=== PATIENT | male | born 1945 | race Hispanic/Latino ===

== ENCOUNTER 2019-05-15 09:52 | Inpatient (IN) | payer MEDICARE ==
[2019-05-15] MEDS ORDERED: DEXTROSE 50% IN WATER (25GM) 50 ML SYRINGE IV PRN (10:09)
[2019-05-15] MEDS ORDERED: NAPROXEN 375 MG TAB PO PRN (10:25)
[2019-05-15] MEDS: INSULIN LISPRO 100 UNIT/ML SUB-Q SCH ×2 (11:15→17:15)
--- NOTE | 2019-05-15 11:26 | History and Physical Report ---
History of Present Illness Date: 05/15/19 Date of admission: 05/15/19 11:12 Chief Complaint: CVA History of present illness: 73-year-old male who developed left face arm and leg numbness. Was taken to the ER and found to be hypertensive. CT head showed no acute findings however MRI showed a medullary infarct. Patient underwent PT and OT for therapy at the acute hospital and was recommended for acute inpatient rehabilitation. On exam he notes that he has some constipation with a very small bowel movement today. He also notes that he is having left-sided numbness in his leg and buttock's for quite some time and on exam seems to be consistent with SI joint or possibly nerve root impingement. Patient denies any issues with seizures even though this is part of his medical record. Says he was briefly placed on antiepileptics however states that he is never had a seizure to his knowledge. Has been off of medications for over a year without any further issues. At baseline patient does state that he has some issues of balance and those are worsened currently. After the patient was medically stabilized they were transferred for further rehabilitation. All available medical records have been reviewed. Plan of care was discussed with patient. Past History Past Medical History: arthritis, CAD, diabetes, hypertension, hyperlipidemia, seizures (questionable) Past Surgical History: Other (cardiac, foot, knee, prostate, shoulder) Social history: , lives with family, full code. denies: smoking, alcohol abuse Family history: diabetes, hypertension Medications and Allergies Allergies Allergy/AdvReac Type Severity Reaction Status Date / Time No Known Allergies Allergy Verified 05/15/19 10:50 Active Meds: Active Medications Amlodipine Besylate (Amlodipine) 10 mg PO QDAY VALERIO Aspirin (Halfprin Ec) 81 mg PO QDAY VALERIO Atorvastatin Calcium (Lipitor) 40 mg PO QHS VALERIO Clopidogrel Bisulfate (Plavix) 75 mg PO QDAY VALERIO Dextrose (D50w (25gm) Syringe) 50 ml IV Q30MIN PRN; Protocol PRN Reason: Hypoglycemia Diclofenac Sodium (Diclofenac 1%) 1 applic TP TID PRN PRN Reason: Pain, Moderate (4-6) Ergocalciferol (Vitamin D2) 50,000 unit PO QWEEK VALERIO Fenofibrate (Tricor) 48 mg PO QDAY VALERIO Heparin Sodium (Porcine) (Heparin) 5,000 unit SUB-Q Q8HR VALERIO Hydralazine HCl (Apresoline) 25 mg PO Q8HR VALERIO Insulin Glargine (Lantus) 15 units SUB-Q QHS VALERIO Insulin Human Lispro (Humalog) 0 unit SUB-Q AC VALERIO; Protocol Lisinopril (Zestril) 40 mg PO QDAY VALERIO Metformin HCl (Glucophage) 1,000 mg PO BIDDIAB VALERIO Naproxen (Naproxen) 375 mg PO Q12H PRN PRN Reason: Pain, Mild (1-3) Review of Systems All systems: negative (ROS negative for 12 systems except as noted below with pertinent positives and negatives.) Constitutional: no weight loss, no fever, no chills Ears, nose, mouth and throat: no decreased hearing, no dysphagia Cardiovascular: no chest pain, no rapid/irregular heart beat Respiratory: no cough, no shortness of breath Gastrointestinal: constipation, no abdominal pain, no nausea, no vomiting Genitourinary Male: no dysuria, no flank pain Musculoskeletal: leg numbness/tingling, gait dysfunction Integumentary: no rash, no sores Neurological: weakness, parathesias Endocrine: high blood sugars Exam - Exam Narrative exam: MUSCULOSKELETAL SPECIALTY EXAM CONSTITUTIONAL: Well developed, well nourished, appropriately groomed, obese. RIGHT hand dominant. LYMPHATIC: No appreciable abnormalities palpable in neck RESPIRATORY: Clear to auscultation bilaterally, no increased work of breathing CARDIOVASCULAR: Regular Rate/ Rhythm, no swelling, edema or tenderness in BUE or BLE. Pulses palpable in all extremities. All extremities warm. GI: + bowel sounds, soft, NTTP, nondistended. INTEGUMENTARY: Normal, no lesion, rash, masses or bruising noted in extremities. Noted to have area delineated with marker on the right upper extremity of previous infiltration. No redness or current infiltration appreciated. MUSCULOSKELETAL: BUE and BLE normal without defect, crepitus, subluxation, effusion, arthritic changes or TTP. R 4+/5 L 4-/5 ROM normal Tone normal NEURO: CN II : Visual [place] full to confrontation CN II, III : PERRL CN III, IV, : EOMI CN V : Facial sensation intact CN VII : Symmetric facial expressions and eye closure CN VIII : Hearing intact to finger rustle CN IX, X : Palate/uvula elevate midline, phonation normal CN XI : Intact shoulder shrug and head rotation CN XII : Tongue protrudes midline Sensation intact in all extremities without extinction. Reflexes 1+ bilaterally at biceps, brachioradialis and patella. No clonus at ankles. Coordination intact in RUE, impaired in LUE. No tremor noted in 4 extremities. Naming and repetition intact. Follows 2 step commands. Aphasia not appreciated Dysarthria not appreciated Dysphagia not appreciated Neglect not appreciated POSTURE and GAIT: Sitting posture good. Balance appears reasonable. Gait deferred until seen with therapy. PSYCH: Alert, oriented x3, affect appears euthymic. Insight appears intact. Assessment and Plan Assessment and plan: Patient was assessed and evaluated for Acute Inpatient Rehab Unit. Due to the patients above-mentioned medical complexity, along with decreased functional mobility and self care, this patient continues to require and be appropriate for a comprehensive, multidisciplinary [id number] rehabilitation program. These needs cannot be met in an outpatient or other less intensive setting. The patient would continue to benefit from skilled therapy intervention for at least 3 hours per day, five days a week, with techniques specific to the needs of the patient to improve function, activities of daily living, and reintegration into the community. The patient continues to require: -- OT to improve ROM, self-care, and learn use of adaptive equipment -- PT to improve strength and balance, functional transfers, and ambulation with energy conservation techniques to improve functional mobility -- SEISMOGRAPH COMPUTER to address cognitive deficits and swallowing ability -- 24 hour RN to ensure and prevent skin breakdown, promote progressive independence while ensuring safety, ensure education regarding medications, and incorporation of the rehabilitation at the bedside -- 24 hour Client Support Manager to coordinate this interdisciplinary program, and to manage/prevent complications as a result of the patients medical comorbidities. -Plan of care by day 4 -Weekly team conferences With such a program, there is a reasonable certainty that the goals individualized for this patient can be achieved within the specified length of stay. CVA medullary with left hemiparesis: Continue secondary stroke prevention, discussed prognosis and recovery time period. Monitor for any further neurological deficits or changes, monitor for post stroke depression, monitor for shoulder hand syndrome. Hypertension: Monitor blood pressure on her regular basis and adjust medications as needed for optimal control of hypertension. Hold orders placed for medications. Diabetes, insulin dependent: Continue metformin and insulin regimen. Patient takes true acidity and Apidra at home. We'll substitute for glargine and sliding scale insulin while here. Previous hemoglobin A1c at outside hospital was 9.0. Hyperlipidemia: Continue statin. We'll need to follow-up with PCP for a goal LDL less than 70. CAD: Monitor for any signs of cardiac abnormalities. Seizure disorder: Patient does not think this was ever truly diagnosed and has not been on antiepileptics for years. Z73.6 ADL dysfunction: OT will work on improving ability to perform ADLs (including assistive devices) to increase independence and decrease caregiver burden and improve functional transfers and mobility training. R26.2 Difficulty walking: PT will work on gait training and proper use of assistive devices and advance as appropriate to use of stairs and outside ambulation on uneven surfaces. R26.81 Unsteadiness on feet: PT will work on improving static and dynamic sitting and standing balance as well as proper use of assistive devices to decrease risk of falls. R26.89 Abnormality of gait: PT will work to improve safety and efficiency of gait through neuromotor training and gait training along with instruction on proper use of assistive devices. M62.81 Muscle weakness: PT & OT will work on strengthening exercises to improve functional strength including mixture of closed and open kinetic chain exercises. R53.81 Debility: PT & OT will work on improving overall functional status to improve participation with ADLs, mobility and social involvement. R53.83 Fatigue: PT & OT will work on improving endurance through aerobic exercises and therapeutic activity while monitoring patients tolerance for activity and vital signs as needed. DVT ppx: Pain: Continue physical modalities in therapy and pain medications as needed to achieve functional pain control. Sleep: Monitor and address as needed. Bowel: Monitor and address as needed. Start Medications with hold orders to ensure regular bowel movements. Appetite: Monitor and address as needed. Discharge planning: Pending therapy progress and care plan meeting. Will continue discussion with therapy team, SW, patient and family. Restrictions/ Precautions: Falls WB status: FWB Functional Hx: ADLs: Independent Cognition: Independent Mobility: No AD Barriers to Discharge: Decreased mobility and ability to perform self care, balance deficits, weakness Estimated Length of Stay: 1421 days Discharge Destination: Home with family POST ADMISSION PHYSICIAN EVALUATION I have examined the patient and find that functional status, medical condition a nd appropriateness for IR[facility] admission are essentially unchanged from those described in the preadmission screening. Will monitor for worsening neurologic function, shoulder-hand syndrome, post stroke depression, dysphagia, DVT/PE, bowel and bladder complications and complications due to poorly controlled diabetes and hypertension and electrolyte abnormalities. Will attempt to avoid occurrence of these issues or treat them if they present themselves.
[2019-05-15] MEDS ORDERED: INSULIN NPH, HUMAN 100 UNIT/1 ML SUB-Q SCH (11:30)
[2019-05-15] MEDS: hydrALAZINE 25 MG TAB PO SCH ×2 (14:18→23:02)
[2019-05-15] MEDS: HEPARIN 5,000 UNIT/1 ML VIAL SUB-Q SCH ×2 (15:17→23:01)
[2019-05-15] MEDS: metFORMIN 500 MG TAB PO SCH (18:06)
[2019-05-15] MEDS ORDERED: INSULIN GLARGINE 100 UNITS/ML SUB-Q SCH (22:00)
[2019-05-16] MEDS: hydrALAZINE 25 MG TAB PO SCH ×3 (06:16→21:33)
[2019-05-16] MEDS: HEPARIN 5,000 UNIT/1 ML VIAL SUB-Q SCH ×3 (06:17→21:33)
[2019-05-16] MEDS: INSULIN LISPRO 100 UNIT/ML SUB-Q SCH ×3 (08:56→17:11)
[2019-05-16] MEDS: FENOFIBRATE 48 MG TAB PO SCH (08:57)
[2019-05-16] MEDS: CLOPIDOGREL 75 MG TAB PO SCH (08:57)
[2019-05-16] MEDS: DICLOFENAC SODIUM 1% TOPICAL GEL 100 GM TP PRN ×2 (08:57→21:43)
[2019-05-16] MEDS: metFORMIN 500 MG TAB PO SCH ×2 (08:58→17:07)
[2019-05-16] MEDS: amLODIPine 10 MG TAB PO SCH (08:58)
[2019-05-16] MEDS: ASPIRIN EC 81 MG TAB PO SCH (08:58)
[2019-05-16] MEDS: LISINOPRIL 40 MG TAB PO SCH (08:58)
[2019-05-16 09:20] LABS: Basophils % (Auto) 0.4 % (0.0-1.8); Eosinophils # (Auto) 0.2 K/mm3 (0.0-0.4); Hematocrit 43.8 % (35.5-45.6); Hemoglobin 14.6 gm/dl (11.8-15.2); Lymphocytes # (Auto) 3.1 K/mm3 (1.2-5.4); Lymphocytes % (Auto) 37.8 % (13.4-35.0); Mean Corpuscular HGB Conc 33 % (32-34); Mean Corpuscular Volume 96 fl (84-94); Monocytes # (Auto) 0.8 K/mm3 (0.0-0.8); Monocytes % (Auto) 9.5 % (0.0-7.3); Platelet Count 191 K/mm3 (140-440); Red Blood Count 4.57 M/mm3 (3.65-5.03); Red Cell Distribution Width 14.1 % (13.2-15.2)
[2019-05-16 09:41] LABS: Alanine Aminotransferase 54 units/L (7-56); Albumin 4.8 g/dL (3.9-5); BUN/Creatinine Ratio 7; Blood Urea Nitrogen 85 mg/dL (9-20); Calcium 10.2 mg/dL (8.4-10.2); Hemolysis Index 10
[2019-05-16 12:11] LABS: BUN/Creatinine Ratio 28; Blood Urea Nitrogen 28 mg/dL (9-20); Calcium 8.9 mg/dL (8.4-10.2); Hemolysis Index 24
[2019-05-16] MEDS ORDERED: INSULIN GLARGINE 100 UNITS/ML SUB-Q SCH (14:00)
--- NOTE | 2019-05-16 14:31 | Progress Note ---
Subjective Date of service: 05/16/19 Principal diagnosis: CVA Interval history: 73-year-old male who developed left face arm and leg numbness. Was taken to the ER and found to be hypertensive. CT head showed no acute findings however MRI showed a medullary infarct. Patient underwent PT and OT for therapy at the acute hospital and was recommended for acute inpatient rehabilitation. On exam he notes that he has some constipation with a very small bowel movement today. He also notes that he is having left-sided numbness in his leg and buttock's for quite some time and on exam seems to be consistent with SI joint or possibly nerve root impingement. Patient denies any issues with seizures even though this is part of his medical record. Says he was briefly placed on antiepileptics however states that he is never had a seizure to his knowledge. Has been off of medications for over a year without any further issues. At baseline patient does state that he has some issues of balance and those are worsened currently. Noted the patient is due to take dual antiplatelet therapy for 3 weeks and then return to Plavix only. Patient is participating in therapy and making reasonable progress. Taking rest breaks as needed. +BM. Denies pain, palpitations, dyspnea, cough, N/V, weakne ss, or joint pain. Notes that he has a sinus headache with fullness in the frontal sinus. BP has been elevated, increase hydralazine. GLU elevated, increase lantus. Discussed issues with patient and . Had several lab errors this morning, stat repeats were ordered and addressed. Patient was discussed during team conference. Patient is doing fairly well overall but is having some issues with higher level functioning. We'll continue to work with him on mobility, balance, strengthening, safety awareness. We'll also work on uneven surfaces, stairs and fall recovery. Medications being adjusted to better controlled diabetes. Patient will need to go back to previous therapy at home once he returns. All records, vitals, labs and medications were reviewed. No other issues per patient, nursing or therapy. Objective - Exam Narrative Exam: MUSCULOSKELETAL SPECIALTY EXAM CONSTITUTIONAL: Well developed, well nourished, appropriately groomed, obese. RIGHT hand dominant. RESPIRATORY: Clear to auscultation bilaterally, no increased work of breathing CARDIOVASCULAR: Regular Rate/ Rhythm, no swelling, edema or tenderness in BUE or BLE. All extremities warm. GI: + bowel sounds, soft, NTTP, nondistended. INTEGUMENTARY: Normal, no lesion, rash, masses or bruising noted in extremities. MUSCULOSKELETAL: BUE and BLE normal without defect, crepitus, subluxation, effusion, arthritic changes or TTP. R 4+/5 L 4-/5 ROM normal Tone normal NEURO: Sensation intact in all extremities without extinction, some parasthesias in LUE No tremor noted in 4 extremities. Naming and repetition intact. Follows 2 step commands. Aphasia not appreciated Dysarthria not appreciated Dysphagia not appreciated Neglect not appreciated POSTURE and GAIT: Sitting posture good. Balance appears reasonable. Gait deferred until seen with therapy. PSYCH: Alert, oriented x3, affect appears euthymic. Insight appears intact. - Constitutional Vitals: Vital Signs - 12hr 05/16/19 05/16/19 05/16/19 06:01 06:03 06:16 Temperature 36.3 C L Pulse Rate 57 L 57 L Respiratory 20 Rate Blood Pressure 157/61 157/61 Blood Pressure [Left] O2 Sat by Pulse 93 Oximetry 05/16/19 05/16/19 05/16/19 07:30 08:58 11:33 Temperature 36.5 C 36.4 C Pulse Rate 58 L 58 L 71 Respiratory 16 18 Rate Blood Pressure 163/64 169/66 Blood Pressure 163/64 [Left] O2 Sat by Pulse 95 94 Oximetry 05/16/19 05/16/19 12:00 13:30 Temperature 36.4 C L Pulse Rate 71 71 Respiratory 20 Rate Blood Pressure 169/66 Blood Pressure 169/66 [Left] O2 Sat by Pulse 94 Oximetry - Allied health notes Allied health notes reviewed: nursing, PT, ST, OT FIMS assessment as documented by PT/OT/ST: Social interaction/Memory/Problem solving Social Interaction FIM Score 7. Complete [place] (Interacts appropriately. Controls temper.) Memory FIM Score 7. Complete [place] (Remembers people and routines.) Problem Solving FIM Score 7. Complete [place] (Solves complex problems. Self corrects.) - Labs CBC & Chem 7: 05/16/19 08:44 05/16/19 10:46 Labs: Laboratory Results - last 72 hr 05/15/19 05/15/19 05/15/19 11:57 17:05 22:26 WBC RBC Hgb Hct MCV MCH MCHC RDW Plt Count Lymph % (Auto) [place] % (Auto) Eos % (Auto) Baso % (Auto) Lymph # [place] # Eos # Baso # Seg Neutrophils % Seg Neutrophils # Sodium Potassium Chloride Carbon Dioxide Anion Gap BUN Creatinine Estimated GFR BUN/Creatinine Ratio Glucose POC Glucose 261 H 261 H 271 H Calcium Total Bilirubin AST ALT Alkaline Phosphatase Total Protein Albumin Albumin/Globulin Ratio 05/16/19 05/16/19 05/16/19 07:40 08:44 08:44 WBC 8.2 RBC 4.57 Hgb 14.6 Hct 43.8 MCV 96 H MCH 32 MCHC 33 RDW 14.1 Plt Count 191 Lymph % (Auto) 37.8 H [place] % (Auto) 9.5 H Eos % (Auto) 2.0 Baso % (Auto) 0.4 Lymph # 3.1 [place] # 0.8 Eos # 0.2 Baso # 0.0 Seg Neutrophils % 50.3 Seg Neutrophils # 4.1 Sodium TNR Potassium TNR Chloride TNR Carbon Dioxide 20 L Anion Gap TNR BUN 85 H Creatinine 13.0 H Estimated GFR 4 BUN/Creatinine Ratio 7 Glucose 254 H POC Glucose 253 H Calcium 10.2 Total Bilirubin 1.00 AST 31 ALT 54 Alkaline Phosphatase 158 H Total Protein 8.7 H Albumin 4.8 Albumin/Globulin Ratio 1.2 05/16/19 05/16/19 10:46 11:37 WBC RBC Hgb Hct MCV MCH MCHC RDW Plt Count Lymph % (Auto) [place] % (Auto) Eos % (Auto) Baso % (Auto) Lymph # [place] # Eos # Baso # Seg Neutrophils % Seg Neutrophils # Sodium 138 Potassium 4.9 Chloride 102.9 Carbon Dioxide 16 L Anion Gap 24 BUN 28 H Creatinine 1.0 D Estimated GFR > 60 BUN/Creatinine Ratio 28 Glucose 356 H POC Glucose 294 H Calcium 8.9 Total Bilirubin AST ALT Alkaline Phosphatase Total Protein Albumin Albumin/Globulin Ratio Assessment and Plan CVA medullary with left hemiparesis: Continue secondary stroke prevention, discussed prognosis and recovery time period. Monitor for any further neurological deficits or changes, monitor for post stroke depression, monitor for shoulder hand syndrome. Hypertension: Monitor blood pressure on her regular basis and adjust medications as needed for optimal control of hypertension. Hold orders placed for m edications. Diabetes, insulin dependent: Continue metformin and insulin regimen. Patient takes true acidity and Apidra at home. We'll substitute for glargine and sliding scale insulin while here. Previous hemoglobin A1c at outside hospital was 9.0. Hyperlipidemia: Continue statin. We'll need to follow-up with PCP for a goal LDL less than 70. CAD: Monitor for any signs of cardiac abnormalities. Seizure disorder: Patient does not think this was ever truly diagnosed and has not been on antiepileptics for years. Z73.6 ADL dysfunction: OT will work on improving ability to perform ADLs (including assistive devices) to increase independence and decrease caregiver burden and improve functional transfers and mobility training. R26.2 Difficulty walking: PT will work on gait training and proper use of assistive devices and advance as appropriate to use of stairs and outside ambulation on uneven surfaces. R26.81 Unsteadiness on feet: PT will work on improving static and dynamic sitting and standing balance as well as proper use of assistive devices to decrease risk of falls. R26.89 Abnormality of gait: PT will work to improve safety and efficiency of gait through neuromotor training and gait training along with instruction on proper use of assistive devices. M62.81 Muscle weakness: PT & OT will work on strengthening exercises to improve functional strength including mixture of closed and open kinetic chain exercises. R53.81 Debility: PT & OT will work on improving overall functional status to improve participation with ADLs, mobility and social involvement. R53.83 Fatigue: PT & OT will work on improving endurance through aerobic exercises and therapeutic activity while monitoring patients tolerance for activity and vital signs as needed. DVT ppx: heparin Pain: Continue physical modalities in therapy and pain medications as needed to achieve functional pain control. Sleep: Monitor and address as needed. Bowel: Monitor and address as needed. Start Medications with hold orders to ensure regular bowel movements. Appetite: Monitor and address as needed. Discharge planning: Pending therapy progress and care plan meeting. Will continue discussion with therapy team, SW, patient and family. Restrictions/ Precautions: Falls WB status: FWB Functional Hx: ADLs: Independent Cognition: Independent Mobility: No AD Barriers to Discharge: Decreased mobility and ability to perform self care, balance deficits, weakness Estimated Length of Stay: 1421 days Discharge Destination: Home with family
[2019-05-16] MEDS: PSEUDOEPHEDRINE 120 MG PO SCH (22:55)
[2019-05-17] MEDS: hydrALAZINE 25 MG TAB PO SCH ×3 (06:24→21:50)
[2019-05-17] MEDS: HEPARIN 5,000 UNIT/1 ML VIAL SUB-Q SCH ×3 (06:24→21:51)
[2019-05-17] MEDS: INSULIN LISPRO 100 UNIT/ML SUB-Q SCH ×3 (07:43→17:23)
[2019-05-17] MEDS: FENOFIBRATE 48 MG TAB PO SCH (08:33)
[2019-05-17] MEDS: metFORMIN 500 MG TAB PO SCH ×2 (08:33→18:02)
[2019-05-17] MEDS: ASPIRIN EC 81 MG TAB PO SCH (08:34)
[2019-05-17] MEDS: CLOPIDOGREL 75 MG TAB PO SCH (08:34)
[2019-05-17] MEDS: amLODIPine 10 MG TAB PO SCH (08:34)
[2019-05-17] MEDS: LISINOPRIL 40 MG TAB PO SCH (08:34)
--- NOTE | 2019-05-17 10:31 | Progress Note ---
Subjective Date of service: 05/17/19 Principal diagnosis: CVA Interval history: 73-year-old male who developed left face arm and leg numbness. Was taken to the ER and found to be hypertensive. CT head showed no acute findings however MRI showed a medullary infarct. Patient underwent PT and OT for therapy at the acute hospital and was recommended for acute inpatient rehabilitation. On exam he notes that he has some constipation with a very small bowel movement today. He also notes that he is having left-sided numbness in his leg and buttock's for quite some time and on exam seems to be consistent with SI joint or possibly nerve root impingement. Patient denies any issues with seizures even though this is part of his medical record. Says he was briefly placed on antiepileptics however states that he is never had a seizure to his knowledge. Has been off of medications for over a year without any further issues. At baseline patient does state that he has some issues of balance and those are worsened currently. Noted the patient is due to take dual antiplatelet therapy for 3 weeks and then return to Plavix only. Patient is participating in therapy and making reasonable progress. Taking rest breaks as needed. +BM. Denies pain, palpitations, dyspnea, cough, N/V, weakne ss, or joint pain. Sinus headache resolved, will stop sudafed. BP has been elevated, add HCTZ. GLU still elevated, increase lantus. Discussed issues with patient. Noted to have slight back pain c/w SIJ with radiation to knee - asked therapy to perform SIJ stretching to see if it improved. Parasthesias on Left. All records, vitals, labs and medications were reviewed. No other issues per patient, nursing or therapy. Objective - Exam Narrative Exam: MUSCULOSKELETAL SPECIALTY EXAM CONSTITUTIONAL: Well developed, well nourished, appropriately groomed, obese. RIGHT hand dominant. RESPIRATORY: Clear to auscultation bilaterally, no increased work of breathing CARDIOVASCULAR: Regular Rate/ Rhythm, no swelling, edema or tenderness in BUE or BLE. All extremities warm. GI: + bowel sounds, soft, NTTP, nondistended. INTEGUMENTARY: Normal, no lesion, rash, masses or bruising noted in extremities. MUSCULOSKELETAL: Mild TTP over L SIJ. BUE and BLE normal without defect, crepitus, subluxation, effusion, arthritic changes or TTP. R 4+/5 L 4-/5 ROM normal Tone normal NEURO: Sensation intact in all extremities without extinction, some parasthesias in LUE, LLE No tremor noted in 4 extremities. Naming and repetition intact. Follows 2 step commands. Aphasia not appreciated Dysarthria not appreciated Dysphagia not appreciated Neglect not appreciated POSTURE and GAIT: Sitting posture good. Balance appears reasonable. Gait deferred until seen with therapy. PSYCH: Alert, oriented x3, affect appears euthymic. Insight appears intact. - Constitutional Vitals: Vital Signs - 12hr 05/17/19 05/17/19 05/17/19 02:00 04:57 06:24 Temperature 36.2 C L Pulse Rate 71 91 H Respiratory 17 19 Rate Blood Pressure 153/68 156/68 O2 Sat by Pulse 96 93 Oximetry 05/17/19 07:49 Temperature 36.1 C L Pulse Rate 89 Respiratory 20 Rate Blood Pressure 159/79 O2 Sat by Pulse 95 Oximetry - Allied health notes Allied health notes reviewed: nursing, PT, OT FIMS assessment as documented by PT/OT/ST: Social interaction/Memory/Problem solving Social Interaction FIM Score 5. Supervision (Needs supv. <10%. Needs encouragement to participate.) Memory FIM Score 5. Supervision (Needs cueing <10%, stressful/ unfamiliar situations.) Problem Solving FIM Score 5. Supervision (Needs cueing <10% to solve routine problems.) - Labs CBC & Chem 7: 05/16/19 08:44 05/16/19 10:46 Labs: Laboratory Results - last 72 hr 05/15/19 05/15/19 05/15/19 11:57 17:05 22:26 WBC RBC Hgb Hct MCV MCH MCHC RDW Plt Count Lymph % (Auto) [place] % (Auto) Eos % (Auto) Baso % (Auto) Lymph # [place] # Eos # Baso # Seg Neutrophils % Seg Neutrophils # Sodium Potassium Chloride Carbon Dioxide Anion Gap BUN Creatinine Estimated GFR BUN/Creatinine Ratio Glucose POC Glucose 261 H 261 H 271 H Calcium Total Bilirubin AST ALT Alkaline Phosphatase Total Protein Albumin Albumin/Globulin Ratio 05/16/19 05/16/19 05/16/19 07:40 08:44 08:44 WBC 8.2 RBC 4.57 Hgb 14.6 Hct 43.8 MCV 96 H MCH 32 MCHC 33 RDW 14.1 Plt Count 191 Lymph % (Auto) 37.8 H [place] % (Auto) 9.5 H Eos % (Auto) 2.0 Baso % (Auto) 0.4 Lymph # 3.1 [place] # 0.8 Eos # 0.2 Baso # 0.0 Seg Neutrophils % 50.3 Seg Neutrophils # 4.1 Sodium TNR Potassium TNR Chloride TNR Carbon Dioxide 20 L Anion Gap TNR BUN 85 H Creatinine 13.0 H Estimated GFR 4 BUN/Creatinine Ratio 7 Glucose 254 H POC Glucose 253 H Calcium 10.2 Total Bilirubin 1.00 AST 31 ALT 54 Alkaline Phosphatase 158 H Total Protein 8.7 H Albumin 4.8 Albumin/Globulin Ratio 1.2 05/16/19 05/16/19 05/16/19 10:46 11:37 17:06 WBC RBC Hgb Hct MCV MCH MCHC RDW Plt Count Lymph % (Auto) [place] % (Auto) Eos % (Auto) Baso % (Auto) Lymph # [place] # Eos # Baso # Seg Neutrophils % Seg Neutrophils # Sodium 138 Potassium 4.9 Chloride 102.9 Carbon Dioxide 16 L Anion Gap 24 BUN 28 H Creatinine 1.0 D Estimated GFR > 60 BUN/Creatinine Ratio 28 Glucose 356 H POC Glucose 294 H 263 H Calcium 8.9 Total Bilirubin AST ALT Alkaline Phosphatase Total Protein Albumin Albumin/Globulin Ratio 05/16/19 05/17/19 21:25 07:57 WBC RBC Hgb Hct MCV MCH MCHC RDW Plt Count Lymph % (Auto) [place] % (Auto) Eos % (Auto) Baso % (Auto) Lymph # [place] # Eos # Baso # Seg Neutrophils % Seg Neutrophils # Sodium Potassium Chloride Carbon Dioxide Anion Gap BUN Creatinine Estimated GFR BUN/Creatinine Ratio Glucose POC Glucose 287 H 255 H Calcium Total Bilirubin AST ALT Alkaline Phosphatase Total Protein Albumin Albumin/Globulin Ratio Assessment and Plan CVA medullary with left hemiparesis: Continue secondary stroke prevention, discussed prognosis and recovery time period. Monitor for any further neurological deficits or changes, monitor for post stroke depression, monitor for shoulder hand syndrome. Hypertension: Monitor blood pressure on her regular basis and adjust medications as needed for optimal control of hypertension. Hold orders placed for medications. 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 Patient takes true acidity and Apidra at home. We'll substitute for glargine and sliding scale insulin while here. Previous hemoglobin A1c at outside hospital was 9.0. Increase Lantus Hyperlipidemia: Continue statin. We'll need to follow-up with PCP for a goal LDL less than 70. CAD: Monitor for any signs of cardiac abnormalities. Seizure disorder: Patient does not think this was ever truly diagnosed and has not been on antiepileptics for years. Z73.6 ADL dysfunction: OT will work on improving ability to perform ADLs (including assistive devices) to increase independence and decrease caregiver burden and improve functional transfers and mobility training. R26.2 Difficulty walking: PT will work on gait training and proper use of assistive devices and advance as appropriate to use of stairs and outside ambulation on uneven surfaces. R26.81 Unsteadiness on feet: PT will work on improving static and dynamic sitting and standing balance as well as proper use of assistive devices to decrease risk of falls. R26.89 Abnormality of gait: PT will work to improve safety and efficiency of gait through neuromotor training and gait training along with instruction on proper use of assistive devices. M62.81 Muscle weakness: PT & OT will work on strengthening exercises to improve functional strength including mixture of closed and open kinetic chain exerci ses. R53.81 Debility: PT & OT will work on improving overall functional status to improve participation with ADLs, mobility and social involvement. R53.83 Fatigue: PT & OT will work on improving endurance through aerobic exercises and therapeutic activity while monitoring patients tolerance for act ivity and vital signs as needed. DVT ppx: heparin Pain: Continue physical modalities in therapy and pain medications as needed to achieve functional pain control. Sleep: Monitor and address as needed. Bowel: Monitor and address as needed. Start Medications with hold orders to ensure regular bowel movements. Appetite: Monitor and address as needed. Discharge planning: Pending therapy progress and care plan meeting. Will continue discussion with therapy team, SW, patient and family. Restrictions/ Precautions: Falls WB status: FWB Functional Hx: ADLs: Independent Cognition: Independent Mobility: No AD Barriers to Discharge: Decreased mobility and ability to perform self care, balance deficits, weakness Estimated Length of Stay: 1421 days Discharge Destination: Home with family
--- NOTE | 2019-05-17 10:31 | IRU Plan of Care ---
Interdisciplinary Plan of Care - IP IRU INTERDISCIPLINARY PLAN: [facility] Inpatient Rehab Unit Plan of Care IRU Interdisciplinary Care Plan Start: 05/15/19 12:30 Freq: Admission then PRN Status: Active Protocol: Document 05/16/19 20:38 TH (Rec: 05/16/19 20:44 TH [id number]) Interdisciplinary Problem List Interdisciplinary Problem List Interdisciplinary Problem List Impaired Bathing/Grooming, Query Text:Answers will Trigger Problems Impaired Dressing,Impaired and Outcomes on Worklist. Mobility,Impaired Transfers, Impaired Toileting,Impaired Safety,Diabetes Education, Impaired Cardiovascular System IRU Interdisciplinary Care Plan Therapy Services Therapy Services Will Include: Physical Therapy,Occupational Query Text:Patient will be seen for a Therapy minimum of 3 hours of daily therapy 5 out of 7 days a week. Therapy intensity may be adjusted within a 7 consecutive day period to effectively serve the individual needs of the patient. Treatment Frequency/Intensity/Duration Treatment Frequency 5x per week Treatment Intensity 3 hours per day Treatment Duration 14-21 days Problem Area: Eating/Swallowing Eating/Swallowing Outcomes Eating/Swallowing Interventions Problem Area: Bathing/Grooming Bathing/Grooming Outcomes Improve [place] w/ Grooming,Improve [place] w/ Bathing Bathing/Grooming Interventions ADL Training,Use of Assistive Devices,Therapeutic Exercise, Therapeutic Activity, Neuromuscular Re-Education, Balance Work,Activity Tolerance Work,Patient/ Caregiver Education Problem Area: Dressing Dressing Outcomes Improve [place] w/ UB Dressing,Improve [place] w/ LB Dressing Dressing Interventions ADL Training,Use of Assistive Devices,Neuromuscular Re- Education,Therapeutic Exercise ,Balance Work,Modalities, Patient/Caregiver Education Problem Area: Mobility Mobility Outcomes Improve [place] w/ Bed Mobility,Improve [place] w/ Ambulation,Improve [place] w/ Stairs/Curb, Improve [place] w/ Wheelchair Mobility Interventions Therapeutic Exercise, Neuromuscular Re-Ed.,Activity Tolerance Work,Modalities,Use of Assistive Devices,Patient/ Caregiver Education,Household Mobility Work Problem Area: Transfers Transfers Outcomes Improve [place] w/ Bed Transfers,Improve [place] w/ Toilet Transfers,Improve [place] w/ Tub/Shower Transfers,Improve [place] w/ Car Transfers Transfers Interventions Transfer Training,Therapeutic Exercise,Neuromuscular Re- Education,Activity Tolerance Work,Modalities,Use of Assistive Devices Problem Area: Bowel/Bladder Managment Bowel/Bladder Outcomes Bowel/Bladder Interventions Problem Area: Toileting Toileting Outcomes Improve [place] w/ Toileting Toileting Interventions ADL Training,Balance Work,Use of Assistive Devices,Patient/ Caregiver Education Problem Area: Nutrition Nutrition Outcomes Nutrition Interventions Problem Area: Comprehension Comprehension Outcomes Comprehension Interventions Problem Area: Expression Expression Outcomes Expression Interventions Problem Area: Problem Solving Problem Solving Outcomes Problem Solving Interventions Problem Area: Memory Memory Outcomes Memory Interventions Problem Area: Pain Management Pain Management Outcomes Pain Management Interventions Problem Area: Knowledge Deficits Knowledge Deficits Outcomes Knowledge Deficits Interventions Problem Area: Skin/Tissue Integrity Skin/Tissue Integrity Outcomes Skin/Tissue Integrity Interventions Problem Area: Social Interaction Social Interaction Outcomes Social Interaction Interventions Problem Area: Adjustment to Disability Adjustment to Disability Outcomes Adjustment to Disability Interventions Problem Area: Discharge Concerns Discharge Concerns Outcomes Discharge Concerns Interventions Problem Area: Community Reintegration Community Reintegration Outcomes Community Reintegration Interventions Problem Area: Home Management Home Management Outcomes Improve [place] w/ Home Management Home Management Interventions Meal Preparation,Clothing Care ,Activity Tolerance Work, Leisure Skills Development, House Cleaning,Patient/ Caregiver Education Problem Area: Safety Safety Outcomes Provide Safe Environment, Perform Selfcare Safely, Demonstrate Good Safety w/ Transfers/Mobility Safety Interventions Identify Fall Risk,[place] Pt. to Environment,Reduce Environmental Hazards,Neuro Check Assessment,Implement Mechanical Devices, i.e. Chair Alarm (Post Fall Update),Re- Educate Patient/Caregiver for Safety (Post Fall Update) Problem Area: Medication Education Medication Education Outcomes Medication Education Interventions Problem Area: Diabetes Education Diabetes Education Outcomes Demonstrate Knowledge of Resources Availlable in Diabetic Ed. Folder Diabetes Education Interventions Give Pt. Diabetes Education Folder Problem Area: Oxygenation Oxygenation Outcomes Oxygenation Interventions Problem Area: Cardiovascular Cardiovascular Outcomes Cardiovascular Interventions Physician Only Medical Prognosis and Rehabilitation Potential (Completed by Physician) Good medical prognosis, good rehab potential. Diabetes and HTN not well controlled, adjusting medications to improve. Doing well from therapy standpoint. This plan of care has been developed based on the findings from the pre- admission assessment, post admission physician evaluation, information gathered from the assessments from all therapy disciplines and other pertinent clinicians. The plan of care has been reviewed and discussed in collaboration with the interdisciplinary team. The plan of care will be reviewed and updated at least weekly.
[2019-05-17] MEDS: INSULIN GLARGINE 100 UNITS/ML SUB-Q SCH (22:00)
[2019-05-17] MEDS ORDERED: INSULIN GLARGINE 100 UNITS/ML SUB-Q SCH (22:00)
[2019-05-17] MEDS: PSEUDOEPHEDRINE 120 MG PO SCH (22:03)
[2019-05-18] MEDS: hydrALAZINE 25 MG TAB PO SCH ×3 (05:12→21:31)
[2019-05-18] MEDS: HEPARIN 5,000 UNIT/1 ML VIAL SUB-Q SCH ×3 (05:13→21:31)
[2019-05-18 06:53] LABS: BUN/Creatinine Ratio 26; Blood Urea Nitrogen 26 mg/dL (9-20); Calcium 8.6 mg/dL (8.4-10.2); Hemolysis Index 14
[2019-05-18] MEDS: INSULIN LISPRO 100 UNIT/ML SUB-Q SCH ×3 (10:07→17:17)
[2019-05-18] MEDS: hydroCHLOROthiazide 25 MG TAB PO SCH (10:08)
[2019-05-18] MEDS: ASPIRIN EC 81 MG TAB PO SCH (10:08)
[2019-05-18] MEDS: LISINOPRIL 40 MG TAB PO SCH (10:08)
[2019-05-18] MEDS: metFORMIN 500 MG TAB PO SCH ×2 (10:08→17:17)
[2019-05-18] MEDS: INSULIN GLARGINE 100 UNITS/ML SUB-Q SCH ×2 (10:08→21:33)
[2019-05-18] MEDS: CLOPIDOGREL 75 MG TAB PO SCH (10:08)
[2019-05-18] MEDS: FENOFIBRATE 48 MG TAB PO SCH (10:08)
[2019-05-18] MEDS: amLODIPine 10 MG TAB PO SCH (10:08)
[2019-05-18] MEDS ORDERED: LORATADINE (NF) 10 MG TAB PO ONE (23:00)
[2019-05-19] MEDS: hydrALAZINE 25 MG TAB PO SCH ×3 (06:12→21:23)
[2019-05-19] MEDS: HEPARIN 5,000 UNIT/1 ML VIAL SUB-Q SCH ×3 (06:13→21:23)
[2019-05-19] MEDS: INSULIN LISPRO 100 UNIT/ML SUB-Q SCH ×3 (07:28→16:04)
[2019-05-19] MEDS: hydroCHLOROthiazide 25 MG TAB PO SCH (08:13)
[2019-05-19] MEDS: LISINOPRIL 40 MG TAB PO SCH (08:13)
[2019-05-19] MEDS: metFORMIN 500 MG TAB PO SCH ×2 (08:14→16:50)
[2019-05-19] MEDS: FENOFIBRATE 48 MG TAB PO SCH (08:14)
[2019-05-19] MEDS: CLOPIDOGREL 75 MG TAB PO SCH (08:14)
[2019-05-19] MEDS: amLODIPine 10 MG TAB PO SCH (08:14)
[2019-05-19] MEDS: ASPIRIN EC 81 MG TAB PO SCH (08:14)
[2019-05-19] MEDS: INSULIN GLARGINE 100 UNITS/ML SUB-Q SCH ×2 (08:30→21:24)
[2019-05-19] MEDS ORDERED: LORATADINE (NF) 10 MG TAB PO ONE (22:00)
[2019-05-19] MEDS: LORATADINE/PSEUDOEPHEDRINE 10-240 MG TAB 24HR PO SCH (22:11)
[2019-05-20] MEDS: FENOFIBRATE 48 MG TAB PO SCH (08:20)
[2019-05-20] MEDS: hydroCHLOROthiazide 25 MG TAB PO SCH (08:20)
[2019-05-20] MEDS: hydrALAZINE 25 MG TAB PO SCH ×3 (08:20→21:36)
[2019-05-20] MEDS: amLODIPine 10 MG TAB PO SCH (08:20)
[2019-05-20] MEDS: HEPARIN 5,000 UNIT/1 ML VIAL SUB-Q SCH ×3 (08:21→21:37)
[2019-05-20] MEDS: INSULIN GLARGINE 100 UNITS/ML SUB-Q SCH ×4 (08:21→21:39)
[2019-05-20] MEDS: CLOPIDOGREL 75 MG TAB PO SCH (08:21)
[2019-05-20] MEDS: LISINOPRIL 40 MG TAB PO SCH (08:21)
[2019-05-20] MEDS: metFORMIN 500 MG TAB PO SCH ×2 (08:21→17:31)
[2019-05-20] MEDS: ASPIRIN EC 81 MG TAB PO SCH (08:21)
[2019-05-20] MEDS: INSULIN LISPRO 100 UNIT/ML SUB-Q SCH ×3 (08:22→17:30)
[2019-05-20] MEDS: LORATADINE/PSEUDOEPHEDRINE 10-240 MG TAB 24HR PO SCH (09:04)
--- NOTE | 2019-05-20 09:44 | Progress Note ---
Subjective Date of service: 05/20/19 Principal diagnosis: CVA Interval history: 73-year-old male who developed left face arm and leg numbness. Was taken to the ER and found to be hypertensive. CT head showed no acute findings however MRI showed a medullary infarct. Patient underwent PT and OT for therapy at the acute hospital and was recommended for acute inpatient rehabilitation. On exam he notes that he has some constipation with a very small bowel movement today. He also notes that he is having left-sided numbness in his leg and buttock's for quite some time and on exam seems to be consistent with SI joint or possibly nerve root impingement. Patient denies any issues with seizures even though this is part of his medical record. Says he was briefly placed on antiepileptics however states that he is never had a seizure to his knowledge. Has been off of medications for over a year without any further issues. At baseline patient does state that he has some issues of balance and those are worsened currently. Noted the patient is due to take dual antiplatelet therapy for 3 weeks and then return to Plavix only. Patient is participating in therapy and making reasonable progress. Taking rest breaks as needed. +BM. Denies pain, palpitations, dyspnea, cough, N/V, weakne ss, or joint pain. Sinus headache returned, loratadine. BP has been elevated, add clonidine. GLU still elevated, increase lantus. Discussed issues with patient. Some loose stools. All records, vitals, labs and medications were reviewed. No other issues per patient, nursing or therapy. Objective - Exam Narrative Exam: MUSCULOSKELETAL SPECIALTY EXAM CONSTITUTIONAL: Well developed, well nourished, appropriately groomed, obese. RIGHT hand dominant. RESPIRATORY: Clear to auscultation bilaterally, no increased work of breathing CARDIOVASCULAR: Regular Rate/ Rhythm, no swelling, edema or tenderness in BUE or BLE. All extremities warm. GI: + bowel sounds, soft, NTTP, nondistended. INTEGUMENTARY: Normal, no lesion, rash, masses or bruising noted in extremities. MUSCULOSKELETAL: Mild TTP over L SIJ. BUE and BLE normal without defect, crepitus, subluxation, effusion, arthritic changes or TTP. R 4+/5 L 4-/5 ROM normal Tone normal NEURO: Sensation intact in all extremities without extinction, some parasthesias in LUE, LLE No tremor noted in 4 extremities. Naming and repetition intact. Follows 2 step commands. Aphasia not appreciated Dysarthria not appreciated Dysphagia not appreciated Neglect not appreciated POSTURE and GAIT: Sitting posture good. Balance appears reasonable. Gait deferred until seen with therapy. PSYCH: Alert, oriented x3, affect appears euthymic. Insight appears intact. - Constitutional Vitals: Vital Signs - 12hr 05/20/19 05/20/19 05/20/19 00:06 04:39 07:38 Temperature 36.4 C L 37.1 C Pulse Rate 79 83 98 H Respiratory 17 17 Rate Blood Pressure 130/61 128/71 192/87 O2 Sat by Pulse 92 94 95 Oximetry 05/20/19 05/20/19 05/20/19 08:20 08:21 09:36 Temperature Pulse Rate 98 H 98 H 100 H Respiratory Rate Blood Pressure 192/87 192/87 164/82 O2 Sat by Pulse 92 Oximetry - Allied health notes Allied health notes reviewed: nursing, PT, OT FIMS assessment as documented by PT/OT/ST: Social interaction/Memory/Problem solving Social Interaction FIM Score 6. Mod. [place] (Mostly appropriate. May need meds. No supv.) Memory FIM Score 6. Modified [place](Mild difficulty remembering people/routines.) Problem Solving FIM Score 6. Mod. [place] (Mild difficulty or needs more time w/ complex.) Transfers Mode of Locomotion: Walking Toilet Transfers FIM Score 6. Modified [place] (Uses device, special seat or more time.) Locomotion- Stairs Device used on Stairs Handrail/s Number of Stairs Ascended/ 4 Descended Patient used handrail/support: Yes Stairs FIM Score 5. Supervision (12-14 stairs w/ supv. 4-6 stairs independently.) Locomotion- walk/wheelchair Most Frequent Mode of Walking Locomotion: Ambulation Distance 450 Walking FIM Score 5. Supervision (Minimum 150 ft. supv./cues or 50 ft. independently.) Wheelchair FIM Score 0. Activity does not occur Dressing-Upper body Patient retrieves clothing Yes items: Patient applies/removes UE Yes prosthesis or orthosis: Upper Body Dressing FIM Score 5. Supv./Set-Up ([place] sets out clothes or applies pros./orth.) - Labs CBC & Chem 7: 05/16/19 08:44 05/18/19 05:49 Labs: Laboratory Results - last 72 hr 05/17/19 05/17/19 05/17/19 11:55 16:34 19:54 Sodium Potassium Chloride Carbon Dioxide Anion Gap BUN Creatinine Estimated GFR BUN/Creatinine Ratio Glucose POC Glucose 271 H 209 H 204 H Calcium 05/18/19 05/18/19 05/18/19 05:49 07:32 11:48 Sodium 138 Potassium 4.5 Chloride 105.6 Carbon Dioxide 22 Anion Gap 15 BUN 26 H Creatinine 1.0 Estimated GFR > 60 BUN/Creatinine Ratio 26 Glucose 272 H POC Glucose 239 H 301 H Calcium 8.6 05/18/19 05/18/19 05/19/19 16:57 20:41 07:36 Sodium Potassium Chloride Carbon Dioxide Anion Gap BUN Creatinine Estimated GFR BUN/Creatinine Ratio Glucose POC Glucose 195 H 180 H 208 H Calcium 05/19/19 05/19/19 05/19/19 11:49 16:11 19:38 Sodium Potassium Chloride Carbon Dioxide Anion Gap BUN Creatinine Estimated GFR BUN/Creatinine Ratio Glucose POC Glucose 181 H 211 H 181 H Calcium 05/20/19 07:57 Sodium Potassium Chloride Carbon Dioxide Anion Gap BUN Creatinine Estimated GFR BUN/Creatinine Ratio Glucose POC Glucose 212 H Calcium Assessment and Plan CVA medullary with left hemiparesis: Continue secondary stroke prevention, discussed prognosis and recovery time period. Monitor for any further neurological deficits or changes, monitor for post stroke depression, monitor for shoulder hand syndrome. Hypertension: Monitor blood pressure on her regular basis and adjust medications as needed for optimal control of hypertension. Hold orders placed for medications. 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 Patient takes true acidity and Apidra at home. We'll substitute for glargine and sli ding scale insulin while here. Previous hemoglobin A1c at outside hospital was 9.0. Increase Lantus Hyperlipidemia: Continue statin. We'll need to follow-up with PCP for a goal LDL less than 70. CAD: Monitor for any signs of cardiac abnormalities. Seizure disorder: Patient does not think this was ever truly diagnosed and has not been on antiepileptics for years. Z73.6 ADL dysfunction: OT will work on improving ability to perform ADLs (including assistive devices) to increase independence and decrease caregiver burden and improve functional transfers and mobility training. R26.2 Difficulty walking: PT will work on gait training and proper use of assistive devices and advance as appropriate to use of stairs and outside ambulation on uneven surfaces. R26.81 Unsteadiness on feet: PT will work on improving static and dynamic sitting and standing balance as well as proper use of assistive devices to decrease risk of falls. R26.89 Abnormality of gait: PT will work to improve safety and efficiency of gait through neuromotor training and gait training along with instruction on proper use of assistive devices. M62.81 Muscle weakness: PT & OT will work on strengthening exercises to improve functional strength including mixture of closed and open kinetic chain exercises. R53.81 Debility: PT & OT will work on improving overall functional status to improve participation with ADLs, mobility and social involvement. R53.83 Fatigue: PT & OT will work on improving endurance through aerobic exercises and therapeutic activity while monitoring patients tolerance for activity and vital signs as needed. DVT ppx: heparin Pain: Continue physical modalities in therapy and pain medications as needed to achieve functional pain control. Sleep: Monitor and address as needed. Bowel: Monitor and address as needed. Start Medications with hold orders to ensure regular bowel movements. Appetite: Monitor and address as needed. Discharge planning: Pending therapy progress and care plan meeting. Will continue discussion with therapy team, SW, patient and family. Restrictions/ Precautions: Falls WB status: FWB Functional Hx: ADLs: Independent Cognition: Independent Mobility: No AD Barriers to Discharge: Decreased mobility and ability to perform self care, balance deficits, weakness Estimated Length of Stay: 1421 days Discharge Destination: Home with family
[2019-05-20] MEDS ORDERED: SENNOSIDES/DOCUSATE SODIUM 8.6/50 MG TAB PO PRN (11:30)
[2019-05-20] MEDS: cloNIDine 0.1 MG TAB PO SCH ×2 (11:35→21:40)
[2019-05-21] MEDS: hydrALAZINE 25 MG TAB PO SCH ×3 (05:58→22:28)
[2019-05-21] MEDS: HEPARIN 5,000 UNIT/1 ML VIAL SUB-Q SCH ×3 (05:59→22:30)
[2019-05-21 06:39] LABS: Hematocrit 44.6 % (35.5-45.6); Hemoglobin 15.3 gm/dl (11.8-15.2); Mean Corpuscular HGB Conc 34 % (32-34); Mean Corpuscular Volume 94 fl (84-94); Platelet Count 229 K/mm3 (140-440); Red Blood Count 4.74 M/mm3 (3.65-5.03); Red Cell Distribution Width 13.7 % (13.2-15.2)
[2019-05-21 06:59] LABS: Calcium 9.3 mg/dL (8.4-10.2)
[2019-05-21] MEDS ORDERED: LORATADINE (NF) 10 MG TAB PO PRN (08:00)
[2019-05-21] MEDS: INSULIN LISPRO 100 UNIT/ML SUB-Q SCH ×3 (08:46→17:08)
[2019-05-21] MEDS: hydroCHLOROthiazide 25 MG TAB PO SCH (08:48)
[2019-05-21] MEDS: metFORMIN 500 MG TAB PO SCH ×2 (08:48→17:10)
[2019-05-21] MEDS: amLODIPine 10 MG TAB PO SCH (08:49)
[2019-05-21] MEDS: CLOPIDOGREL 75 MG TAB PO SCH (08:50)
[2019-05-21] MEDS: LISINOPRIL 40 MG TAB PO SCH (08:50)
[2019-05-21] MEDS: FENOFIBRATE 48 MG TAB PO SCH (08:50)
[2019-05-21] MEDS: ASPIRIN EC 81 MG TAB PO SCH (08:51)
--- NOTE | 2019-05-21 09:58 | Progress Note ---
Subjective Date of service: 05/21/19 Principal diagnosis: CVA Interval history: 73-year-old male who developed left face arm and leg numbness. Was taken to the ER and found to be hypertensive. CT head showed no acute findings however MRI showed a medullary infarct. Patient underwent PT and OT for therapy at the acute hospital and was recommended for acute inpatient rehabilitation. On exam he notes that he has some constipation with a very small bowel movement today. He also notes that he is having left-sided numbness in his leg and buttock's for quite some time and on exam seems to be consistent with SI joint or possibly nerve root impingement. Patient denies any issues with seizures even though this is part of his medical record. Says he was briefly placed on antiepileptics however states that he is never had a seizure to his knowledge. Has been off of medications for over a year without any further issues. At baseline patient does state that he has some issues of balance and those are worsened currently. Noted the patient is due to take dual antiplatelet therapy for 3 weeks and then return to Plavix only. Patient is participating in therapy and making reasonable progress. Taking rest breaks as needed. -BM. Slight abdominal pain, benign exam. He thinks it may b e gas pain. Otherwise, denies pain, palpitations, dyspnea, cough, N/V, weakness, or joint pain. BP better. GLU better. Discussed issues with patient. A little dehydrated based on labs but overall stable...encourage PO intake. All records, vitals, labs and medications were reviewed. No other issues per patient, nursing or therapy. Objective - Exam Narrative Exam: MUSCULOSKELETAL SPECIALTY EXAM CONSTITUTIONAL: Well developed, well nourished, appropriately groomed, obese. RIGHT hand dominant. RESPIRATORY: Clear to auscultation bilaterally, no increased work of breathing CARDIOVASCULAR: Regular Rate/ Rhythm, no swelling, edema or tenderness in BUE or BLE. All extremities warm. GI: + bowel sounds, soft, NTTP, nondistended. INTEGUMENTARY: Normal, no lesion, rash, masses or bruising noted in extremities. MUSCULOSKELETAL: Mild TTP over L SIJ. BUE and BLE normal without defect, crepitus, subluxation, effusion, arthritic changes or TTP. R 4+/5 L 4-/5 ROM normal Tone normal NEURO: Sensation intact in all extremities without extinction, some parasthesias in LUE, LLE No tremor noted in 4 extremities. Naming and repetition intact. Follows 2 step commands. Aphasia not appreciated Dysarthria not appreciated Dysphagia not appreciated Neglect not appreciated POSTURE and GAIT: Sitting posture good. Balance appears reasonable. Gait deferred until seen with therapy. PSYCH: Alert, oriented x3, affect appears euthymic. Insight appears intact. - Constitutional Vitals: Vital Signs - 12hr 05/21/19 05/21/19 05/21/19 04:19 05:58 07:30 Temperature 36.3 C L 36.3 C L Pulse Rate 75 75 84 Respiratory 19 18 Rate Blood Pressure 129/63 129/63 Blood Pressure 158/76 [Left] O2 Sat by Pulse 96 96 Oximetry 05/21/19 05/21/19 08:49 08:50 Temperature Pulse Rate 84 84 Respiratory Rate Blood Pressure 158/76 158/76 Blood Pressure [Left] O2 Sat by Pulse Oximetry - Allied health notes Allied health notes reviewed: nursing, PT, OT FIMS assessment as documented by PT/OT/ST: Social interaction/Memory/Problem solving Social Interaction FIM Score 6. Mod. [place] (Mostly appropriate. May need meds. No supv.) Memory FIM Score 6. Modified [place](Mild difficulty remembering people/routines.) Problem Solving FIM Score 6. Mod. [place] (Mild difficulty or needs more time w/ complex.) Transfers Mode of Locomotion: Walking Toilet Transfers FIM Score 6. Modified [place] (Uses device, special seat or more time.) Locomotion- Stairs Device used on Stairs Handrail/s Number of Stairs Ascended/ 4 Descended Patient used handrail/support: Yes Stairs FIM Score 5. Supervision (12-14 stairs w/ supv. 4-6 stairs independently.) Locomotion- walk/wheelchair Most Frequent Mode of Walking Locomotion: Ambulation Distance 450 Walking FIM Score 5. Supervision (Minimum 150 ft. supv./cues or 50 ft. independently.) Wheelchair FIM Score 0. Activity does not occur Dressing-Upper body Patient retrieves clothing Yes items: Patient applies/removes UE Yes prosthesis or orthosis: Upper Body Dressing FIM Score 5. Supv./Set-Up ([place] sets out clothes or applies pros./orth.) - Labs CBC & Chem 7: 05/21/19 06:11 05/21/19 06:11 Labs: Laboratory Results - last 72 hr 05/18/19 05/18/19 05/18/19 11:48 16:57 20:41 WBC RBC Hgb Hct MCV MCH MCHC RDW Plt Count Sodium Potassium Chloride Carbon Dioxide Anion Gap BUN Creatinine Estimated GFR BUN/Creatinine Ratio Glucose POC Glucose 301 H 195 H 180 H Calcium 05/19/19 05/19/19 05/19/19 07:36 11:49 16:11 WBC RBC Hgb Hct MCV MCH MCHC RDW Plt Count Sodium Potassium Chloride Carbon Dioxide Anion Gap BUN Creatinine Estimated GFR BUN/Creatinine Ratio Glucose POC Glucose 208 H 181 H 211 H Calcium 05/19/19 05/20/19 05/20/19 19:38 07:57 11:43 WBC RBC Hgb Hct MCV MCH MCHC RDW Plt Count Sodium Potassium Chloride Carbon Dioxide Anion Gap BUN Creatinine Estimated GFR BUN/Creatinine Ratio Glucose POC Glucose 181 H 212 H 165 H Calcium 05/20/19 05/20/19 05/21/19 16:20 21:15 06:11 WBC 9.2 RBC 4.74 Hgb 15.3 H Hct 44.6 MCV 94 MCH 32 MCHC 34 RDW 13.7 Plt Count 229 Sodium Potassium Chloride Carbon Dioxide Anion Gap BUN Creatinine Estimated GFR BUN/Creatinine Ratio Glucose POC Glucose 196 H 155 H Calcium 05/21/19 05/21/19 06:11 07:48 WBC RBC Hgb Hct MCV MCH MCHC RDW Plt Count Sodium 136 L Potassium 4.5 Chloride 101.3 Carbon Dioxide 20 L Anion Gap 19 BUN 32 H Creatinine 1.2 Estimated GFR 59 BUN/Creatinine Ratio 27 Glucose 178 H POC Glucose 191 H Calcium 9.3 Assessment and Plan CVA medullary with left hemiparesis: Continue secondary stroke prevention, discussed prognosis and recovery time period. Monitor for any further neurological deficits or changes, monitor for post stroke depression, monitor f or shoulder hand syndrome. Hypertension: Monitor blood pressure on her regular basis and adjust medications as needed for optimal control of hypertension. Hold orders placed for medications. 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 Patient takes true acidity and Apidra at home. We'll substitute for glargine and sliding scale insulin while here. Previous hemoglobin A1c at outside hospital was 9.0. Increase Lantus Hyperlipidemia: Continue statin. We'll need to follow-up with PCP for a goal LDL less than 70. CAD: Monitor for any signs of cardiac abnormalities. Seizure disorder: Patient does not think this was ever truly diagnosed and has not been on antiepileptics for years. Z73.6 ADL dysfunction: OT will work on improving ability to perform ADLs (including assistive devices) to increase independence and decrease caregiver burden and improve functional transfers and mobility training. R26.2 Difficulty walking: PT will work on gait training and proper use of assistive devices and advance as appropriate to use of stairs and outside ambula tion on uneven surfaces. R26.81 Unsteadiness on feet: PT will work on improving static and dynamic s itting and standing balance as well as proper use of assistive devices to decrease risk of falls. R26.89 Abnormality of gait: PT will work to improve safety and efficiency of gait through neuromotor training and gait training along with instruction on proper use of assistive devices. M62.81 Muscle weakness: PT & OT will work on strengthening exercises to improve functional strength including mixture of closed and open kinetic chain exercises. R53.81 Debility: PT & OT will work on improving overall functional status to improve participation with ADLs, mobility and social involvement. R53.83 Fatigue: PT & OT will work on improving endurance through aerobic exercises and therapeutic activity while monitoring patients tolerance for activity and vital signs as needed. DVT ppx: heparin Pain: Continue physical modalities in therapy and pain medications as needed to achieve functional pain control. Sleep: Monitor and address as needed. Bowel: Monitor and address as needed. Start Medications with hold orders to ensure regular bowel movements. Adjust medications Appetite: Monitor and address as needed. Discharge planning: Pending therapy progress and care plan meeting. Will continue discussion with therapy team, SW, patient and family. Restrictions/ Precautions: Falls WB status: FWB Functional Hx: ADLs: Independent Cognition: Independent Mobility: No AD Barriers to Discharge: Decreased mobility and ability to perform self care, balance deficits, weakness Estimated Length of Stay: 1421 days Discharge Destination: Home with family
[2019-05-21] MEDS: cloNIDine 0.1 MG TAB PO SCH ×2 (10:23→22:27)
[2019-05-21] MEDS: INSULIN GLARGINE 100 UNITS/ML SUB-Q SCH ×2 (10:24→22:28)
[2019-05-21] MEDS ORDERED: POLYETHYLENE GLYCOL 3350 17 GM POWDER PO PRN (10:40)
[2019-05-22] MEDS: HEPARIN 5,000 UNIT/1 ML VIAL SUB-Q SCH ×3 (06:24→21:51)
[2019-05-22] MEDS: hydrALAZINE 25 MG TAB PO SCH ×4 (06:24→21:52)
[2019-05-22] MEDS: amLODIPine 10 MG TAB PO SCH ×2 (07:35→10:40)
[2019-05-22] MEDS: INSULIN LISPRO 100 UNIT/ML SUB-Q SCH ×3 (07:35→16:25)
[2019-05-22] MEDS: CLOPIDOGREL 75 MG TAB PO SCH (07:36)
[2019-05-22] MEDS: hydroCHLOROthiazide 25 MG TAB PO SCH (07:36)
[2019-05-22] MEDS: ASPIRIN EC 81 MG TAB PO SCH (07:36)
[2019-05-22] MEDS: FENOFIBRATE 48 MG TAB PO SCH (07:37)
[2019-05-22] MEDS: ERGOCALCIFEROL (VIT D2) 50,000 UNIT CAP PO SCH ×2 (07:37→10:00)
[2019-05-22] MEDS: LISINOPRIL 40 MG TAB PO SCH ×2 (07:37→10:40)
--- NOTE | 2019-05-22 07:45 | Progress Note ---
Subjective Date of service: 05/22/19 Principal diagnosis: CVA Interval history: 73-year-old male who developed left face arm and leg numbness. Was taken to the ER and found to be hypertensive. CT head showed no acute findings however MRI showed a medullary infarct. Patient underwent PT and OT for therapy at the acute hospital and was recommended for acute inpatient rehabilitation. On exam he notes that he has some constipation with a very small bowel movement today. He also notes that he is having left-sided numbness in his leg and buttock's for quite some time and on exam seems to be consistent with SI joint or possibly nerve root impingement. Patient denies any issues with seizures even though this is part of his medical record. Says he was briefly placed on antiepileptics however states that he is never had a seizure to his knowledge. Has been off of medications for over a year without any further issues. At baseline patient does state that he has some issues of balance and those are worsened currently. Noted the patient is due to take dual antiplatelet therapy for 3 weeks and then return to Plavix only. Patient is participating in therapy and making reasonable progress. Taking rest breaks as needed. +BM, but mostly liquid, patient feels like he is constipated and having a hard time moving stool through the rectal vault. Will have a suppository scheduled for this afternoon and a KUB prior to that. Slight abdominal pain, benign exam. Otherwise, denies pain, palpitations, dyspnea, cough, N/V, weakness, or joint pain. BP slightly lower this morning, adjusting medications and will DC HCTZ, reduce hydralazine. Would like to get him over to just lisinopril, amlodipine and clonidine if possible prior to discharge. GLU better. Discussed issues with patient. All records, vitals, labs and medications were reviewed. No other issues per patient, nursing or therapy. Objective - Exam Narrative Exam: MUSCULOSKELETAL SPECIALTY EXAM CONSTITUTIONAL: Well developed, well nourished, appropriately groomed, obese. RIGHT hand dominant. RESPIRATORY: Clear to auscultation bilaterally, no increased work of breathing CARDIOVASCULAR: Regular Rate/ Rhythm, no swelling, edema or tenderness in BUE or BLE. All extremities warm. GI: + bowel sounds, soft, NTTP, nondistended. INTEGUMENTARY: Normal, no lesion, rash, masses or bruising noted in extremities. MUSCULOSKELETAL: Mild TTP over L SIJ. BUE and BLE normal without defect, crepitus, subluxation, effusion, arthritic changes or TTP. R 4+/5 L 4-/5 ROM normal Tone normal NEURO: Sensation intact in all extremities without extinction, some parasthesias in LUE, LLE No tremor noted in 4 extremities. Naming and repetition intact. Follows 2 step commands. Aphasia not appreciated Dysarthria not appreciated Dysphagia not appreciated Neglect not appreciated POSTURE and GAIT: Sitting posture good. Balance appears reasonable. Gait reasonable with rolling walker at modified independent, still having issues with balance with quad cane. We will continue to work with balance to try and improve that. Some of this is long-standing.. PSYCH: Alert, oriented x3, affect appears euthymic. Insight appears intact. - Constitutional Vitals: Vital Signs - 12hr 05/21/19 05/21/19 05/21/19 19:47 22:27 22:28 Temperature 36.3 C L Pulse Rate 73 72 72 Respiratory 20 Rate Blood Pressure 130/62 130/62 130/62 O2 Sat by Pulse 93 Oximetry 05/22/19 05/22/19 05/22/19 06:24 07:35 07:37 Temperature Pulse Rate 66 Respiratory Rate Blood Pressure 129/63 105/58 105/58 O2 Sat by Pulse Oximetry - Allied health notes Allied health notes reviewed: nursing, PT, OT FIMS assessment as documented by PT/OT/ST: Social interaction/Memory/Problem solving Social Interaction FIM Score 6. Mod. [place] (Mostly appropriate. May need meds. No supv.) Memory FIM Score 6. Modified [place](Mild difficulty remembering people/routines.) Problem Solving FIM Score 6. Mod. [place] (Mild difficulty or needs more time w/ complex.) Transfers Mode of Locomotion: Wheelchair Bed/Chair/Wheelchair Transfers 5. Supervision (Needs supv. or set-up for FIM Score sliding board, foot rests.) Toilet Transfers FIM Score 6. Modified [place] (Uses device, special seat or more time.) Locomotion- Stairs Device used on Stairs Handrail/s Number of Stairs Ascended/ 4 Descended Patient used handrail/support: Yes Stairs FIM Score 5. Supervision (12-14 stairs w/ supv. 4-6 stairs independently.) Locomotion- walk/wheelchair Most Frequent Mode of Walking Locomotion: Ambulation Distance 450 Walking FIM Score 5. Supervision (Minimum 150 ft. supv./cues or 50 ft. independently.) Wheelchair FIM Score 0. Activity does not occur Dressing-Upper body Patient retrieves clothing Yes items: Patient applies/removes UE Yes prosthesis or orthosis: Upper Body Dressing FIM Score 5. Supv./Set-Up ([place] sets out clothes or applies pros./orth.) - Labs CBC & Chem 7: 05/21/19 06:11 05/21/19 06:11 Labs: Laboratory Results - last 72 hr 05/19/19 05/19/19 05/19/19 11:49 16:11 19:38 WBC RBC Hgb Hct MCV MCH MCHC RDW Plt Count Sodium Potassium Chloride Carbon Dioxide Anion Gap BUN Creatinine Estimated GFR BUN/Creatinine Ratio Glucose POC Glucose 181 H 211 H 181 H Calcium 05/20/19 05/20/19 05/20/19 07:57 11:43 16:20 WBC RBC Hgb Hct MCV MCH MCHC RDW Plt Count Sodium Potassium Chloride Carbon Dioxide Anion Gap BUN Creatinine Estimated GFR BUN/Creatinine Ratio Glucose POC Glucose 212 H 165 H 196 H Calcium 05/20/19 05/21/19 05/21/19 21:15 06:11 06:11 WBC 9.2 RBC 4.74 Hgb 15.3 H Hct 44.6 MCV 94 MCH 32 MCHC 34 RDW 13.7 Plt Count 229 Sodium 136 L Potassium 4.5 Chloride 101.3 Carbon Dioxide 20 L Anion Gap 19 BUN 32 H Creatinine 1.2 Estimated GFR 59 BUN/Creatinine Ratio 27 Glucose 178 H POC Glucose 155 H Calcium 9.3 05/21/19 05/21/19 05/21/19 07:48 11:20 16:32 WBC RBC Hgb Hct MCV MCH MCHC RDW Plt Count Sodium Potassium Chloride Carbon Dioxide Anion Gap BUN Creatinine Estimated GFR BUN/Creatinine Ratio Glucose POC Glucose 191 H 177 H 159 H Calcium 05/21/19 05/22/19 21:22 07:44 WBC RBC Hgb Hct MCV MCH MCHC RDW Plt Count Sodium Potassium Chloride Carbon Dioxide Anion Gap BUN Creatinine Estimated GFR BUN/Creatinine Ratio Glucose POC Glucose 164 H 133 H Calcium Assessment and Plan CVA medullary with left hemiparesis: Continue secondary stroke prevention, discussed prognosis and recovery time period. Monitor for any further neurological deficits or changes, monitor for post stroke depression, monitor for shoulder hand syndrome. Hypertension: Monitor blood pressure on her regular basis and adjust medications as needed for optimal control of hypertension. Hold orders placed for medications. 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 Patient takes true acidity and Apidra at home. We'll substitute for glargine and sliding scale insulin while here. Previous hemoglobin A1c at outside hospital was 9.0. Increase Lantus Hyperlipidemia: Continue statin. We'll need to follow-up with PCP for a goal LDL less than 70. CAD: Monitor for any signs of cardiac abnormalities. Seizure disorder: Patient does not think this was ever truly diagnosed and has not been on antiepileptics for years. Z73.6 ADL dysfunction: OT will work on improving ability to perform ADLs (including assistive devices) to increase independence and decrease caregiver burden and improve functional transfers and mobility training. R26.2 Difficulty walking: PT will work on gait training and proper use of assistive devices and advance as appropriate to use of stairs and outside ambulation on uneven surfaces. R26.81 Unsteadiness on feet: PT will work on improving static and dynamic sitting and standing balance as well as proper use of assistive devices to decrease risk of falls. R26.89 Abnormality of gait: PT will work to improve safety and efficiency of gait through neuromotor training and gait training along with instruction on proper use of assistive devices. M62.81 Muscle weakness: PT & OT will work on strengthening exercises to improve functional strength including mixture of closed and open kinetic chain exercises. R53.81 Debility: PT & OT will work on improving overall functional status to improve participation with ADLs, mobility and social involvement. R53.83 Fatigue: PT & OT will work on improving endurance through aerobic exercises and therapeutic activity while monitoring patients tolerance for activity and vital signs as needed. DVT ppx: heparin Pain: Continue physical modalities in therapy and pain medications as needed to achieve functional pain control. Sleep: Monitor and address as needed. Bowel: Monitor and address as needed. Start Medications with hold orders to ensure regular bowel movements. Adjust medications. KUB today followed by suppository tonight Appetite: Monitor and address as needed. Discharge planning: Pending therapy progress and care plan meeting. Will continue discussion with therapy team, SW, patient and family. Restrictions/ Precautions: Falls WB status: FWB Functional Hx: ADLs: Independent Cognition: Independent Mobility: No AD Barriers to Discharge: Decreased mobility and ability to perform self care, balance deficits, weakness Estimated Length of Stay: 1421 days Discharge Destination: Home with family
[2019-05-22] MEDS: metFORMIN 500 MG TAB PO SCH (08:04)
--- NOTE | 2019-05-22 10:40 | XRay Report ---
ABDOMEN 1 VIEW INDICATION: Constipation. COMPARISON: No relevant prior imaging study available. FINDINGS: A relatively gasless abdomen with no bowel distention. Air is identified in the right colon and in th e stomach. Minimal stool. No free air. There is a possible right urinary calculus measuring greater t [place] 5 mm. Multiple pelvic phleboliths. Degenerative change in the spine and hips. IMPRESSION: 1. No bowel obstruction and minimal stool. 2. A possible right renal calculus. Signer Name: Omid Beach MD Signed: 05/22/2019 10:36 AM Workstation Name: [id number]
[2019-05-22] MEDS: cloNIDine 0.1 MG TAB PO SCH ×2 (10:47→21:49)
[2019-05-22] MEDS: INSULIN GLARGINE 100 UNITS/ML SUB-Q SCH ×2 (11:00→21:49)
[2019-05-23] MEDS: HEPARIN 5,000 UNIT/1 ML VIAL SUB-Q SCH ×3 (06:00→22:23)
[2019-05-23] MEDS: hydrALAZINE 25 MG TAB PO SCH (06:14)
[2019-05-23] MEDS: INSULIN LISPRO 100 UNIT/ML SUB-Q SCH ×3 (07:39→18:21)
[2019-05-23] MEDS: amLODIPine 10 MG TAB PO SCH (08:19)
--- NOTE | 2019-05-23 09:34 | Progress Note ---
Subjective Date of service: 05/23/19 Principal diagnosis: CVA Interval history: 73-year-old male who developed left face arm and leg numbness. Was taken to the ER and found to be hypertensive. CT head showed no acute findings however MRI showed a medullary infarct. Patient underwent PT and OT for therapy at the acute hospital and was recommended for acute inpatient rehabilitation. On exam he notes that he has some constipation with a very small bowel movement today. He also notes that he is having left-sided numbness in his leg and buttock's for quite some time and on exam seems to be consistent with SI joint or possibly nerve root impingement. Patient denies any issues with seizures even though this is part of his medical record. Says he was briefly placed on antiepileptics however states that he is never had a seizure to his knowledge. Has been off of medications for over a year without any further issues. At baseline patient does state that he has some issues of balance and those are worsened currently. Noted the patient is due to take dual antiplatelet therapy for 3 weeks and then return to Plavix only. Patient is participating in therapy and making reasonable progress. Taking rest breaks as needed. +BM per patient, nothing charted in computer system. STill states he is having loose stools. Otherwise, denies pain, palpitations, dyspnea, cough, N/V, weakness, or joint pain. BP slightly lower again this morning, adjusting medications and will DC HYDRALAZINE and change clonidine to PRN. GLU better. Discussed issues with patient. KUB reviewed, no significant stool burden, degenerative changes seen throughout the hips and spine. PRN lomotil added. Discussed during team conference. Doing well with PT. Minor LOB at times but this was also premorbid. Safe with RW. has purchased RW and cane. Doing well from OT perspective as well. Will continue to work on improving balance as much as possible. Will also continue to address fluctuating BP and monitor BMs. Look to DC home on Monday with outpatient therapy. All records, vitals, labs and medications were reviewed. No other issues per patient, nursing or therapy. Objective - Exam Narrative Exam: MUSCULOSKELETAL SPECIALTY EXAM CONSTITUTIONAL: Well developed, well nourished, appropriately groomed, obese. RIGHT hand dominant. RESPIRATORY: Clear to auscultation bilaterally, no increased work of breathing CARDIOVASCULAR: Regular Rate/ Rhythm, no swelling, edema or tenderness in BUE or BLE. All extremities warm. GI: + bowel sounds, soft, NTTP, nondistended. INTEGUMENTARY: Normal, no lesion, rash, masses or bruising noted in extremities. MUSCULOSKELETAL: Mild TTP over L SIJ. BUE and BLE normal without defect, crepitus, subluxation, effusion, arthritic changes or TTP. R 4+/5 L 4-/5 ROM normal Tone normal NEURO: Sensation intact in all extremities without extinction, some parasthesias in LUE, LLE No tremor noted in 4 extremities. Naming and repetition intact. Follows 2 step commands. Aphasia not appreciated Dysarthria not appreciated Dysphagia not appreciated Neglect not appreciated POSTURE and GAIT: Sitting posture good. Balance appears reasonable. Gait reasonable with rolling walker at modified independent, still having issues with balance with quad cane. We will continue to work with balance to try and improve that. Some of this is long-standing.. PSYCH: Alert, oriented x3, affect appears euthymic. Insight appears intact. - Constitutional Vitals: Vital Signs - 12hr 05/22/19 05/22/19 05/23/19 21:49 21:52 06:14 Temperature Pulse Rate 97 H 97 H 59 L Respiratory Rate Blood Pressure 134/63 134/63 100/45 O2 Sat by Pulse Oximetry 05/23/19 07:11 Temperature 36.3 C L Pulse Rate 64 Respiratory 18 Rate Blood Pressure 114/57 O2 Sat by Pulse 93 Oximetry - Allied health notes Allied health notes reviewed: nursing, PT, OT FIMS assessment as documented by PT/OT/ST: Social interaction/Memory/Problem solving Social Interaction FIM Score 6. Mod. [place] (Mostly appropriate. May need meds. No supv.) Memory FIM Score 6. Modified [place](Mild difficulty remembering people/routines.) Problem Solving FIM Score 5. Supervision (Needs cueing <10% to solve routine problems.) Transfers Mode of Locomotion: Wheelchair Bed/Chair/Wheelchair Transfers 5. Supervision (Needs supv. or set-up for FIM Score sliding board, foot rests.) Toilet Transfers FIM Score 6. Modified [place] (Uses device, special seat or more time.) Locomotion- Stairs Device used on Stairs Handrail/s Number of Stairs Ascended/ 4 Descended Patient used handrail/support: Yes Stairs FIM Score 5. Supervision (12-14 stairs w/ supv. 4-6 stairs independently.) Locomotion- walk/wheelchair Most Frequent Mode of Walking Locomotion: Ambulation Distance 450 Walking FIM Score 5. Supervision (Minimum 150 ft. supv./cues or 50 ft. independently.) Wheelchair FIM Score 0. Activity does not occur Dressing-Upper body Patient retrieves clothing Yes items: Patient applies/removes UE Yes prosthesis or orthosis: Upper Body Dressing FIM Score 5. Supv./Set-Up ([place] sets out clothes or applies pros./orth.) - Labs CBC & Chem 7: 05/21/19 06:11 05/21/19 06:11 Labs: Laboratory Results - last 72 hr 05/20/19 05/20/19 05/20/19 11:43 16:20 21:15 WBC RBC Hgb Hct MCV MCH MCHC RDW Plt Count Sodium Potassium Chloride Carbon Dioxide Anion Gap BUN Creatinine Estimated GFR BUN/Creatinine Ratio Glucose POC Glucose 165 H 196 H 155 H Calcium 05/21/19 05/21/19 05/21/19 06:11 06:11 07:48 WBC 9.2 RBC 4.74 Hgb 15.3 H Hct 44.6 MCV 94 MCH 32 MCHC 34 RDW 13.7 Plt Count 229 Sodium 136 L Potassium 4.5 Chloride 101.3 Carbon Dioxide 20 L Anion Gap 19 BUN 32 H Creatinine 1.2 Estimated GFR 59 BUN/Creatinine Ratio 27 Glucose 178 H POC Glucose 191 H Calcium 9.3 05/21/19 05/21/19 05/21/19 11:20 16:32 21:22 WBC RBC Hgb Hct MCV MCH MCHC RDW Plt Count Sodium Potassium Chloride Carbon Dioxide Anion Gap BUN Creatinine Estimated GFR BUN/Creatinine Ratio Glucose POC Glucose 177 H 159 H 164 H Calcium 05/22/19 05/22/19 05/22/19 07:44 11:34 16:17 WBC RBC Hgb Hct MCV MCH MCHC RDW Plt Count Sodium Potassium Chloride Carbon Dioxide Anion Gap BUN Creatinine Estimated GFR BUN/Creatinine Ratio Glucose POC Glucose 133 H 150 H 99 Calcium 05/22/19 05/23/19 20:16 07:21 WBC RBC Hgb Hct MCV MCH MCHC RDW Plt Count Sodium Potassium Chloride Carbon Dioxide Anion Gap BUN Creatinine Estimated GFR BUN/Creatinine Ratio Glucose POC Glucose 139 H 134 H Calcium - Imaging and cardiology Abdominal x-ray: report reviewed, image reviewed Assessment and Plan CVA medullary with left hemiparesis: Continue secondary stroke prevention, discussed prognosis and recovery time period. Monitor for any further neurological deficits or changes, monitor for post stroke depression, monitor for shoulder hand syndrome. Hypertension: Monitor blood pressure on her regular basis and adjust medications as needed for optimal control of hypertension. Hold orders placed for med ications. 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 Patient takes true acidity and Apidra at home. We'll substitute for glargine and slidi ng scale insulin while here. Previous hemoglobin A1c at outside hospital was 9.0. Increase Lantus Hyperlipidemia: Continue statin. We'll need to follow-up with PCP for a goal LDL less than 70. CAD: Monitor for any signs of cardiac abnormalities. Seizure disorder: Patient does not think this was ever truly diagnosed and has not been on antiepileptics for years. Z73.6 ADL dysfunction: OT will work on improving ability to perform ADLs (including assistive devices) to increase independence and decrease caregiver burden and improve functional transfers and mobility training. R26.2 Difficulty walking: PT will work on gait training and proper use of assistive devices and advance as appropriate to use of stairs and outside ambulation on uneven surfaces. R26.81 Unsteadiness on feet: PT will work on improving static and dynamic sitting and standing balance as well as proper use of assistive devices to decrease risk of falls. R26.89 Abnormality of gait: PT will work to improve safety and efficiency of gait through neuromotor training and gait training along with instruction on proper use of assistive devices. M62.81 Muscle weakness: PT & OT will work on strengthening exercises to improve functional strength including mixture of closed and open kinetic chain exercises. R53.81 Debility: PT & OT will work on improving overall functional status to improve participation with ADLs, mobility and social involvement. R53.83 Fatigue: PT & OT will work on improving endurance through aerobic ex ercises and therapeutic activity while monitoring patients tolerance for activity and vital signs as needed. DVT ppx: heparin Pain: Continue physical modalities in therapy and pain medications as needed to achieve functional pain control. Sleep: Monitor and address as needed. Bowel: Monitor and address as needed. Start Medications with hold orders to ensure regular bowel movements. Adjust medications. Appetite: Monitor and address as needed. Discharge planning: Pending therapy progress and care plan meeting. Will continue discussion with therapy team, SW, patient and family. Restrictions/ Precautions: Falls WB status: FWB Functional Hx: ADLs: Independent Cognition: Independent Mobility: No AD Barriers to Discharge: Decreased mobility and ability to perform self care, balance deficits, weakness Estimated Length of Stay: 1421 days Discharge Destination: Home with family
[2019-05-23] MEDS ORDERED: cloNIDine 0.1 MG TAB PO PRN (10:00)
[2019-05-23] MEDS: CLOPIDOGREL 75 MG TAB PO SCH (11:00)
[2019-05-23] MEDS: LISINOPRIL 40 MG TAB PO SCH (11:00)
[2019-05-23] MEDS: ASPIRIN EC 81 MG TAB PO SCH (11:01)
[2019-05-23] MEDS: FENOFIBRATE 48 MG TAB PO SCH (11:01)
[2019-05-23] MEDS: INSULIN GLARGINE 100 UNITS/ML SUB-Q SCH ×2 (11:19→22:00)
[2019-05-23] MEDS ORDERED: DIPHENOXYLATE/ATROPINE TAB PO PRN (12:30)
[2019-05-23] MEDS: metFORMIN 500 MG TAB PO SCH ×2 (14:00→18:19)
[2019-05-24] MEDS: HEPARIN 5,000 UNIT/1 ML VIAL SUB-Q SCH ×3 (05:58→21:41)
--- NOTE | 2019-05-24 08:36 | Progress Note ---
Subjective Date of service: 05/24/19 Principal diagnosis: CVA Interval history: 73-year-old male who developed left face arm and leg numbness. Was taken to the ER and found to be hypertensive. CT head showed no acute findings however MRI showed a medullary infarct. Patient underwent PT and OT for therapy at the acute hospital and was recommended for acute inpatient rehabilitation. On exam he notes that he has some constipation with a very small bowel movement today. He also notes that he is having left-sided numbness in his leg and buttock's for quite some time and on exam seems to be consistent with SI joint or possibly nerve root impingement. Patient denies any issues with seizures even though this is part of his medical record. Says he was briefly placed on antiepileptics however states that he is never had a seizure to his knowledge. Has been off of medications for over a year without any further issues. At baseline patient does state that he has some issues of balance and those are worsened currently. Noted the patient is due to take dual antiplatelet therapy for 3 weeks and then return to Plavix only. Patient is participating in therapy and making reasonable progress. Taking rest breaks as needed. +BM per patient, nothing charted in computer system. Othe rwise, denies pain, palpitations, dyspnea, cough, N/V, weakness, or joint pain. BP improved, cont to monitor. GLU better. Discussed issues with patient. PRN lomotil added. Sinus congestion again. All records, vitals, labs and medications were reviewed. No other issues per patient, nursing or therapy. Objective - Exam Narrative Exam: MUSCULOSKELETAL SPECIALTY EXAM CONSTITUTIONAL: Well developed, well nourished, appropriately groomed, obese. RIGHT hand dominant. RESPIRATORY: Clear to auscultation bilaterally, no increased work of breathing CARDIOVASCULAR: Regular Rate/ Rhythm, no swelling, edema or tenderness in BUE or BLE. All extremities warm. GI: + bowel sounds, soft, NTTP, nondistended. INTEGUMENTARY: Normal, no lesion, rash, masses or bruising noted in extremities. MUSCULOSKELETAL: Mild TTP over L SIJ. BUE and BLE normal without defect, crepitus, subluxation, effusion, arthritic changes or TTP. R 4+/5 L 4-/5 ROM normal Tone normal NEURO: Sensation intact in all extremities without extinction, some parasthesias in LUE, LLE No tremor noted in 4 extremities. Naming and repetition intact. Follows 2 step commands. Aphasia not appreciated Dysarthria not appreciated Dysphagia not appreciated Neglect not appreciated POSTURE and GAIT: Sitting posture good. Balance appears reasonable. Gait reasonable with rolling walker at modified independent, still having issues with balance with quad cane. We will continue to work with balance to try and improve that. Some of this is long-standing.. PSYCH: Alert, oriented x3, affect appears euthymic. Insight appears intact. - Constitutional Vitals: Vital Signs - 12hr 05/24/19 05:00 Respiratory 18 Rate - Allied health notes Allied health notes reviewed: nursing, PT, OT FIMS assessment as documented by PT/OT/ST: Social interaction/Memory/Problem solving Social Interaction FIM Score 6. Mod. [place] (Mostly appropriate. May need meds. No supv.) Memory FIM Score 6. Modified [place](Mild difficulty remembering people/routines.) Problem Solving FIM Score 5. Supervision (Needs cueing <10% to solve routine problems.) Transfers Mode of Locomotion: Wheelchair Bed/Chair/Wheelchair Transfers 5. Supervision (Needs supv. or set-up for FIM Score sliding board, foot rests.) Toilet Transfers FIM Score 6. Modified [place] (Uses device, special seat or more time.) Locomotion- Stairs Device used on Stairs Handrail/s Number of Stairs Ascended/ 4 Descended Patient used handrail/support: Yes Stairs FIM Score 5. Supervision (12-14 stairs w/ supv. 4-6 st airs independently.) Locomotion- walk/wheelchair Most Frequent Mode of Walking Locomotion: Ambulation Distance 450 Walking FIM Score 5. Supervision (Minimum 150 ft. supv./cues or 50 ft. independently.) Wheelchair FIM Score 0. Activity does not occur Dressing-Upper body Patient retrieves clothing Yes items: Patient applies/removes UE Yes prosthesis or orthosis: Upper Body Dressing FIM Score 5. Supv./Set-Up ([place] sets out clothes or applies pros./orth.) - Labs CBC & Chem 7: 05/21/19 06:11 05/21/19 06:11 Labs: Laboratory Results - last 72 hr 05/21/19 05/21/19 05/21/19 11:20 16:32 21:22 POC Glucose 177 H 159 H 164 H 05/22/19 05/22/19 05/22/19 07:44 11:34 16:17 POC Glucose 133 H 150 H 99 05/22/19 05/23/19 05/23/19 20:16 07:21 12:22 POC Glucose 139 H 134 H 211 H 05/23/19 05/23/19 16:39 21:52 POC Glucose 174 H 199 H Assessment and Plan CVA medullary with left hemiparesis: Continue secondary stroke prevention, discussed prognosis and recovery time period. Monitor for any further neurological deficits or changes, monitor for post stroke depression, monitor for shoulder hand syndrome. Hypertension: Monitor blood pressure on her regular basis and adjust medications as needed for optimal control of hypertension. Hold orders placed for medications. 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 Patient takes true acidity and Apidra at home. We'll substitute for glargine and sliding scale insulin while here. Previous hemoglobin A1c at outside hospital was 9.0. Increase Lantus Hyperlipidemia: Continue statin. We'll need to follow-up with PCP for a goal LDL less than 70. CAD: Monitor for any signs of cardiac abnormalities. Seizure disorder: Patient does not think this was ever truly diagnosed and has not been on antiepileptics for years. Z73.6 ADL dysfunction: OT will work on improving ability to perform ADLs (including assistive devices) to increase independence and decrease caregiver burden and improve functional transfers and mobility training. R26.2 Difficulty walking: PT will work on gait training and proper use of assistive devices and advance as appropriate to use of stairs and outside ambulation on uneven surfaces. R26.81 Unsteadiness on feet: PT will work on improving static and dynamic sitting and standing balance as well as proper use of assistive devices to decrease risk of falls. R26.89 Abnormality of gait: PT will work to improve safety and efficiency of gait through neuromotor training and gait training along with instruction on proper use of assistive devices. M62.81 Muscle weakness: PT & OT will work on strengthening exercises to improve functional strength including mixture of closed and open kinetic chain exercises. R53.81 Debility: PT & OT will work on improving overall functional status to improve participation with ADLs, mobility and social involvement. R53.83 Fatigue: PT & OT will work on improving endurance through aerobic exercises and therapeutic activity while monitoring patients tolerance for activity and vital signs as needed. DVT ppx: heparin Pain: Continue physical modalities in therapy and pain medications as needed to achieve functional pain control. Sleep: Monitor and address as needed. Bowel: Monitor and address as needed. Start Medications with hold orders to ensure regular bowel movements. Adjust medications. Appetite: Monitor and address as needed. Discharge planning: Pending therapy progress and care plan meeting. Will continue discussion with therapy team, SW, patient and family. Restrictions/ Precautions: Falls WB status: FWB Functional Hx: ADLs: Independent Cognition: Independent Mobility: No AD Barriers to Discharge: Decreased mobility and ability to perform self care, balance deficits, weakness Estimated Length of Stay: 1421 days Discharge Destination: Home with family
[2019-05-24] MEDS: CLOPIDOGREL 75 MG TAB PO SCH (09:34)
[2019-05-24] MEDS: metFORMIN 500 MG TAB PO SCH ×3 (09:34→17:12)
[2019-05-24] MEDS: amLODIPine 10 MG TAB PO SCH (09:34)
[2019-05-24] MEDS: FENOFIBRATE 48 MG TAB PO SCH (09:35)
[2019-05-24] MEDS: ASPIRIN EC 81 MG TAB PO SCH (09:35)
[2019-05-24] MEDS: LISINOPRIL 40 MG TAB PO SCH (09:35)
[2019-05-24] MEDS: INSULIN GLARGINE 100 UNITS/ML SUB-Q SCH ×2 (09:36→22:43)
[2019-05-24] MEDS: INSULIN LISPRO 100 UNIT/ML SUB-Q SCH ×3 (09:44→17:13)
[2019-05-25] MEDS: HEPARIN 5,000 UNIT/1 ML VIAL SUB-Q SCH ×3 (06:27→21:22)
[2019-05-25 06:44] LABS: Hematocrit 42.4 % (35.5-45.6); Mean Corpuscular HGB Conc 33 % (32-34); Mean Corpuscular Volume 95 fl (84-94); Platelet Count 228 K/mm3 (140-440); Red Blood Count 4.46 M/mm3 (3.65-5.03); Red Cell Distribution Width 13.5 % (13.2-15.2)
[2019-05-25 06:56] LABS: Calcium 9.2 mg/dL (8.4-10.2)
[2019-05-25] MEDS: amLODIPine 10 MG TAB PO SCH (09:11)
[2019-05-25] MEDS: CLOPIDOGREL 75 MG TAB PO SCH (09:11)
[2019-05-25] MEDS: LISINOPRIL 40 MG TAB PO SCH (09:11)
[2019-05-25] MEDS: ASPIRIN EC 81 MG TAB PO SCH (09:11)
[2019-05-25] MEDS: FENOFIBRATE 48 MG TAB PO SCH (09:11)
[2019-05-25] MEDS: metFORMIN 500 MG TAB PO SCH ×2 (09:12→17:26)
[2019-05-25] MEDS: INSULIN GLARGINE 100 UNITS/ML SUB-Q SCH ×2 (09:12→21:21)
[2019-05-25] MEDS: INSULIN LISPRO 100 UNIT/ML SUB-Q SCH ×3 (09:12→17:26)
[2019-05-26] MEDS: HEPARIN 5,000 UNIT/1 ML VIAL SUB-Q SCH ×4 (05:55→21:46)
[2019-05-26] MEDS: FENOFIBRATE 48 MG TAB PO SCH (08:11)
[2019-05-26] MEDS: amLODIPine 10 MG TAB PO SCH (08:11)
[2019-05-26] MEDS: metFORMIN 500 MG TAB PO SCH ×2 (08:11→16:42)
[2019-05-26] MEDS: LISINOPRIL 40 MG TAB PO SCH (08:11)
[2019-05-26] MEDS: CLOPIDOGREL 75 MG TAB PO SCH (08:11)
[2019-05-26] MEDS: ASPIRIN EC 81 MG TAB PO SCH (08:12)
[2019-05-26] MEDS: INSULIN LISPRO 100 UNIT/ML SUB-Q SCH ×4 (08:12→16:43)
[2019-05-26] MEDS: INSULIN GLARGINE 100 UNITS/ML SUB-Q SCH ×2 (10:30→21:47)
[2019-05-27] MEDS: HEPARIN 5,000 UNIT/1 ML VIAL SUB-Q SCH ×3 (05:58→21:34)
[2019-05-27] MEDS: INSULIN LISPRO 100 UNIT/ML SUB-Q SCH ×3 (07:27→16:30)
--- NOTE | 2019-05-27 09:26 | Progress Note ---
Subjective Date of service: 05/27/19 Principal diagnosis: CVA Interval history: 73-year-old male who developed left face arm and leg numbness. Was taken to the ER and found to be hypertensive. CT head showed no acute findings however MRI showed a medullary infarct. Patient underwent PT and OT for therapy at the acute hospital and was recommended for acute inpatient rehabilitation. On exam he notes that he has some constipation with a very small bowel movement today. He also notes that he is having left-sided numbness in his leg and buttock's for quite some time and on exam seems to be consistent with SI joint or possibly nerve root impingement. Patient denies any issues with seizures even though this is part of his medical record. Says he was briefly placed on antiepileptics however states that he is never had a seizure to his knowledge. Has been off of medications for over a year without any further issues. At baseline patient does state that he has some issues of balance and those are worsened currently. Noted the patient is due to take dual antiplatelet therapy for 3 weeks and then return to Plavix only. Patient is participating in therapy and making reasonable progress. Taking rest breaks as needed. +BM per patient, no complaints of diarrhea today. Otherwi se, denies pain, palpitations, dyspnea, cough, N/V, weakness, or joint pain. BP stable cont to monitor. GLU better. Discussed issues with patient and . Patient will discharge tomorrow. Will attempt to utilize outpatient therapy as this can be the best option for the patient currently. However his is currently thought to be going through chemotherapy starting again tomorrow. May need to adjust to home health if he is unable to find transportation to and from outpatient therapy. Patient are has all DME equipment at home. Driving discussed with patient and as well as secondary stroke prevention and monitoring of blood pressure blood glucose. Patient's BUN has continued to increase. We will give normal saline IV. All records, vitals, labs and medications were reviewed. No other issues per patient, nursing or therapy. Objective - Exam Narrative Exam: MUSCULOSKELETAL SPECIALTY EXAM CONSTITUTIONAL: Well developed, well nourished, appropriately groomed, obese. RIGHT hand dominant. RESPIRATORY: Clear to auscultation bilaterally, no increased work of breathing CARDIOVASCULAR: Regular Rate/ Rhythm, no swelling, edema or tenderness in BUE or BLE. All extremities warm. GI: + bowel sounds, soft, NTTP, nondistended. INTEGUMENTARY: Normal, no lesion, rash, masses or bruising noted in extremities. MUSCULOSKELETAL: Mild TTP over L SIJ. BUE and BLE normal without defect, crepitus, subluxation, effusion, arthritic changes or TTP. R 4+/5 L 4+/5 ROM normal Tone normal NEURO: Sensation intact in all extremities without extinction, some parasthesias in LUE, LLE No tremor noted in 4 extremities. Naming and repetition intact. Follows 2 step commands. Aphasia not appreciated Dysarthria not appreciated Dysphagia not appreciated Neglect not appreciated POSTURE and GAIT: Sitting posture good. Balance appears reasonable. Gait reasonable with rolling walker at modified independent, still having issues with balance with quad cane. We will continue to work with balance to try and improve that. Some of this is long-standing.. PSYCH: Alert, oriented x3, affect appears euthymic. Insight appears intact. - Constitutional Vitals: Vital Signs - 12hr 05/27/19 05/27/19 05/27/19 00:03 04:20 07:15 Temperature 37.1 C 36.4 C 36.6 C Pulse Rate 67 56 L 64 Respiratory 18 18 16 Rate Blood Pressure 133/59 138/63 Blood Pressure 156/60 [Left] O2 Sat by Pulse 94 94 91 Oximetry 05/27/19 07:32 Temperature Pulse Rate Respiratory Rate Blood Pressure Blood Pressure [Left] O2 Sat by Pulse 95 Oximetry - Allied health notes Allied health notes reviewed: nursing, PT, OT FIMS assessment as documented by PT/OT/ST: Grooming Patient cleans teeth/dentures: Yes Patient aparicio/brushes hair: Yes Patient washes, rinses and Yes dries face: Patient washes, rinses and Yes dries hands: Patient shaves: Yes Patient performs (no make-up/ 10/04 (100%) shaving): Grooming FIM Score 6. Modified [place] (Needs equipment/device . Extra time.) Toileting Toileting Device Commode over Toilet Patient able to: Adjust clothes before,Clean self,Adjust clothes after Patient able to perform: 3/3 (100%) Toileting FIM Score 6. Modified [place] (Needs equip. or prosth ./orth.) Social interaction/Memory/Problem solving Social Interaction FIM Score 6. Mod. [place] (Mostly appropriate. May need meds. No supv.) Memory FIM Score 6. Modified [place](Mild difficulty remembering people/routines.) Problem Solving FIM Score 6. Mod. [place] (Mild difficulty or needs more time w/ complex.) Transfers Mode of Locomotion: Wheelchair Bed/Chair/Wheelchair Transfers 5. Supervision (Needs supv. or set-up for FIM Score sliding board, foot rests.) Toilet Transfers FIM Score 5. Supervision (Needs supervision or cueing.) Locomotion- Stairs Device used on Stairs Handrail/s Number of Stairs Ascended/ 4 Descended Patient used handrail/support: Yes Stairs FIM Score 5. Supervision (12-14 stairs w/ supv. 4-6 stairs independently.) Locomotion- walk/wheelchair Most Frequent Mode of Walking Locomotion: Ambulation Distance 450 Walking FIM Score 5. Supervision (Minimum 150 ft. supv./cues or 50 ft. independently.) Wheelchair FIM Score 0. Activity does not occur Eating Eating FIM Score 6. Modified [place] (Special consistency or uses device.) Dressing-Upper body Patient retrieves clothing Yes items: Patient applies/removes UE Yes prosthesis or orthosis: Upper Body Dressing FIM Score 6. Modified [place] (Needs equipment, velcro or pros./orth.) Dressing-lower body Patient retrieves clothing Yes items: Patient applies/removes LE No prosthesis or orthosis: Lower Body Dressing FIM Score 6. Modified [place] (Needs equipment, velcro or pros./orth.) - Labs CBC & Chem 7: 05/25/19 05:56 05/25/19 05:56 Labs: Laboratory Results - last 72 hr 05/24/19 05/24/19 05/24/19 09:42 12:15 16:13 WBC RBC Hgb Hct MCV MCH MCHC RDW Plt Count Sodium Potassium Chloride Carbon Dioxide Anion Gap BUN Creatinine Estimated GFR BUN/Creatinine Ratio Glucose POC Glucose 242 H 193 H 182 H Calcium 05/24/19 05/25/19 05/25/19 21:52 05:56 05:56 WBC 7.6 RBC 4.46 Hgb 14.0 Hct 42.4 MCV 95 H MCH 31 MCHC 33 RDW 13.5 Plt Count 228 Sodium 137 Potassium 4.8 Chloride 102.2 Carbon Dioxide 20 L Anion Gap 20 BUN 52 H Creatinine 1.3 Estimated GFR 54 BUN/Creatinine Ratio 40 Glucose 174 H POC Glucose 178 H Calcium 9.2 05/25/19 05/25/19 05/25/19 08:08 12:13 16:28 WBC RBC Hgb Hct MCV MCH MCHC RDW Plt Count Sodium Potassium Chloride Carbon Dioxide Anion Gap BUN Creatinine Estimated GFR BUN/Creatinine Ratio Glucose POC Glucose 198 H 204 H 161 H Calcium 05/25/19 05/26/19 05/26/19 21:21 07:46 11:58 WBC RBC Hgb Hct MCV MCH MCHC RDW Plt Count Sodium Potassium Chloride Carbon Dioxide Anion Gap BUN Creatinine Estimated GFR BUN/Creatinine Ratio Glucose POC Glucose 196 H 185 H 249 H Calcium 05/26/19 05/26/19 05/27/19 16:28 21:11 07:26 WBC RBC Hgb Hct MCV MCH MCHC RDW Plt Count Sodium Potassium Chloride Carbon Dioxide Anion Gap BUN Creatinine Estimated GFR BUN/Creatinine Ratio Glucose POC Glucose 161 H 142 H 163 H Calcium Assessment and Plan CVA medullary with left hemiparesis: Continue secondary stroke prevention, discussed prognosis and recovery time period. Monitor for any further neurological deficits or changes, monitor for post stroke depression, monitor for shoulder hand syndrome. Hypertension: Monitor blood pressure on her regular basis and adjust medications as needed for optimal control of hypertension. Hold orders placed for medications. 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 Patient takes true acidity and Apidra at home. We'll substitute for glargine and sliding scale insulin while here. Previous hemoglobin A1c at outside hospital was 9.0. Increase Lantus Hyperlipidemia: Continue statin. We'll need to follow-up with PCP for a goal LDL less than 70. CAD: Monitor for any signs of cardiac abnormalities. Seizure disorder: Patient does not think this was ever truly diagnosed and has not been on antiepileptics for years. Dehydration: Normal saline Z73.6 ADL dysfunction: OT will work on improving ability to perform ADLs (including assistive devices) to increase independence and decrease caregiver burden and improve functional transfers and mobility training. R26.2 Difficulty walking: PT will work on gait training and proper use of assistive devices and advance as appropriate to use of stairs and outside ambulation on uneven surfaces. R26.81 Unsteadiness on feet: PT will work on improving static and dynamic sitting and standing balance as well as proper use of assistive devices to decrease risk of falls. R26.89 Abnormality of gait: PT will work to improve safety and efficiency of gait through neuromotor training and gait training along with instruction on pr oper use of assistive devices. M62.81 Muscle weakness: PT & OT will work on strengthening exercises to improve functional strength including mixture of closed and open kinetic chain exercises. R53.81 Debility: PT & OT will work on improving overall functional status to improve participation with ADLs, mobility and social involvement. R53.83 Fatigue: PT & OT will work on improving endurance through aerobic exercises and therapeutic activity while monitoring patients tolerance for activity and vital signs as needed. DVT ppx: heparin Pain: Continue physical modalities in therapy and pain medications as needed to achieve functional pain control. Sleep: Monitor and address as needed. Bowel: Monitor and address as needed. Start Medications with hold orders to ensure regular bowel movements. Adjust medications. Appetite: Monitor and address as needed. Discharge planning: Pending therapy progress and care plan meeting. Will continue discussion with therapy team, SW, patient and family. Restrictions/ Precautions: Falls WB status: FWB Functional Hx: ADLs: Independent Cognition: Independent Mobility: No AD Barriers to Discharge: Decreased mobility and ability to perform self care, balance deficits, weakness Estimated Length of Stay: 1421 days Discharge Destination: Home with family
[2019-05-27] MEDS: INSULIN GLARGINE 100 UNITS/ML SUB-Q SCH ×2 (10:11→21:38)
[2019-05-27] MEDS: ASPIRIN EC 81 MG TAB PO SCH (10:57)
[2019-05-27] MEDS: CLOPIDOGREL 75 MG TAB PO SCH (10:57)
[2019-05-27] MEDS: amLODIPine 10 MG TAB PO SCH (10:57)
[2019-05-27] MEDS: FENOFIBRATE 48 MG TAB PO SCH (10:57)
[2019-05-27] MEDS: LISINOPRIL 40 MG TAB PO SCH (10:58)
[2019-05-27] MEDS: metFORMIN 500 MG TAB PO SCH ×2 (10:58→17:30)
[2019-05-27] MEDS: SODIUM CHLORIDE 0.9% 1000 ML 1,000 ML IV SCH (21:54)
[2019-05-27] MEDS ORDERED: MAGNESIUM HYDROXIDE (MOM) ORAL LIQD UDC PO PRN ×2 (21:56→21:58)
[2019-05-28] MEDS: HEPARIN 5,000 UNIT/1 ML VIAL SUB-Q SCH (05:54)
[2019-05-28] MEDS: SODIUM CHLORIDE 0.9% 1000 ML 1,000 ML IV SCH ×2 (07:34→09:32)
[2019-05-28 07:46] VITALS: BP 154/62
[2019-05-28 08:03] LABS: BUN/Creatinine Ratio 35; Blood Urea Nitrogen 38 mg/dL (9-20); Hemolysis Index 5
[2019-05-28] MEDS: INSULIN LISPRO 100 UNIT/ML SUB-Q SCH ×2 (09:32→12:30)
[2019-05-28] MEDS: INSULIN GLARGINE 100 UNITS/ML SUB-Q SCH (09:32)
[2019-05-28] MEDS: amLODIPine 10 MG TAB PO SCH (09:33)
[2019-05-28] MEDS: CLOPIDOGREL 75 MG TAB PO SCH (09:33)
[2019-05-28] MEDS: metFORMIN 500 MG TAB PO SCH (09:33)
[2019-05-28] MEDS: ASPIRIN EC 81 MG TAB PO SCH (09:33)
[2019-05-28] MEDS: FENOFIBRATE 48 MG TAB PO SCH (09:33)
[2019-05-28] MEDS: LISINOPRIL 40 MG TAB PO SCH (09:33)
--- NOTE | 2019-05-28 10:28 | Discharge Summary ---
Providers - Providers Date of Admission: 05/15/19 11:12 Date of discharge: 05/28/19 Attending physician: ADRIA QUEZADA III, MD 05/15/19 10:09 Occupational Therapy Evaluate and Treat [CONS] Routine Comment: Reason For Exam: ADL dysfunction Physical Therapy Evaluation and Treat [CONS] Routine Comment: Reason For Exam: Mobility Dysfunction Speech Therapy Evaluation and Treat [CONS] Routine Reason For Exam: CVA 05/15/19 10:14 Consult to Case Management [CONS] Routine Services Needed at Discharge: Home Health Services Notified:: yes If yes, spoke with:: [facility] Hospital[facility] Reason for admission: CVA Condition: Good Pertinent studies: KUB dated 05/22/2019: No bowel obstruction with minimal stool burden. Possible right renal calculus. Hospital course: 73-year-old male who developed left face arm and leg numbness. Was taken to the ER and found to be hypertensive. CT head showed no acute findings however MRI showed a medullary infarct. Patient underwent PT and OT for therapy at the acute hospital and was recommended for acute inpatient rehabilitation. On exam he notes that he has some constipation with a very small bowel movement today. He also notes that he is having left-sided numbness in his leg and buttock's for quite some time and on exam seems to be consistent with SI joint or possibly nerve root impingement. Patient denies any issues with seizures even though this is part of his medical record. Says he was briefly placed on antiepileptics however states that he is never had a seizure to his knowledge. Has been off of medications for over a year without any further issues. At baseline patient does state that he has some issues of balance and those are worsened currently. Noted: the patient is to take dual antiplatelet therapy for 3 weeks and then return to Plavix only. Will continue 10 days of ASA 81mg + Plavix after discharge. While on the rehabilitation floor, the patient had issues with variable blood pressure. We added medications and increased his current doses only to have him start becoming hypotensive a week later. Again doses were adjusted and he seems to be fairly stable on his current regimen. We have asked him to monitor his blood pressure on a daily basis and to provide this to his PCP at follow-up for further modification. At the follow-up he will also need a CBC and BMP. Towards the end of his stay with us he was slightly dehydrated with an elevated BUN which was corrected with IV fluids prior to discharge. Potassium on day of discharge was slightly elevated at 5.2 and this should correct over the next few days. Remainder of his electrolyte values were normal during the rest of his stay. Blood glucose was fairly well controlled on Lantus and lispro. We'll return the patient home on his home regimen developed by his brake lining maker with instructions to monitor blood glucose and report this to his brake lining maker. No seizure activity noted during his stay on the rehabilitation floor. Patient has not taken antiepileptic for years according to him. He also thinks this was a bad diagnosis. Would recommend follow-up with neurologist both for post stroke monitoring as well as to ensure there are no more issues with seizure activity. From a therapy standpoint, patient was modified independent with ADLs. He did require a little bit of extra time with some activities. He does have a baseline issue with balance per the patient and his . Seems this may have improved slightly with use of a rolling walker which we are encouraging him to use. His states that she has purchased a rolling walker already at home and they also have a shower chair at home. From a physical therapy standpoint he was able to ambulate greater than household distances with a rolling walker and modified independent. He was able to traverse stairs with bilateral upper extremity support utilizing hand rails. He continues to have some issues with balance at times however again this may be baseline according to him and his and seems to have improved with use of strategies and rolling walker. Would recommend a short course of outpatient therapy at discharge for further improvement post stroke. Disposition: DC-01 TO HOME OR SELFCARE Time spent for discharge: >30mins - Discharge Diagnoses (1) CVA (cerebral vascular accident) Status: Acute Qualifiers: CVA mechanism: unspecified Qualified Code(s): I63.9 - Cerebral infarction, unspecified Comment: Right medullary ischemic stroke (2) Hypertension Status: Chronic Qualifiers: Hypertension type: essential hypertension Qualified Code(s): I10 - Essential (primary) hypertension (3) Diabetes Status: Chronic Qualifiers: Diabetes mellitus type: type 2 Diabetes mellitus terminologist insulin use: with terminologist use Diabetes mellitus complication status: with hyperglycemia Qualified Code(s): E11.65 - Type 2 diabetes mellitus with hyperglycemia; Z79.4 - intermediate designer (current) use of insulin (4) CAD (coronary artery disease) Status: Chronic Qualifiers: Coronary Disease-Associated Artery/Lesion type: [place] artery [place] vs. transplanted heart: [place] heart Associated angina: without angina Qualified Code(s): I25.10 - Atherosclerotic heart disease of [place] coronary artery without angina pectoris Core Measure Documentation - Palliative Care Palliative Care/ Comfort Measures: Not Applicable - Core Measures Any of the following diagnoses?: stroke - Stroke Discharge Requirements Statin for LDL = or >70 mg/dl on DC: Yes Anticoag for atrial fib/atrial flutter: Not Applicable Antithrombotic for ischemic stroke: Yes Exam - Physical Exam Narrative exam: MUSCULOSKELETAL SPECIALTY EXAM CONSTITUTIONAL: Well developed, well nourished, appropriately groomed, obese. RIGHT hand dominant. RESPIRATORY: Clear to auscultation bilaterally, no increased work of breathing CARDIOVASCULAR: Regular Rate/ Rhythm, no swelling, edema or tenderness in BUE or BLE. All extremities warm. GI: + bowel sounds, soft, NTTP, nondistended. INTEGUMENTARY: Normal, no lesion, rash, masses or bruising noted in extremities. MUSCULOSKELETAL: Mild TTP over L SIJ. BUE and BLE normal without defect, crepitus, subluxation, effusion, arthritic changes or TTP. R 4+/5 L 4+/5 ROM normal Tone normal NEURO: Sensation intact in all extremities without extinction, some parasthesias in LUE, LLE No tremor noted in 4 extremities. Naming and repetition intact. Follows 2 step commands. Aphasia not appreciated Dysarthria not appreciated Dysphagia not appreciated Neglect not appreciated POSTURE and GAIT: Sitting posture good. Balance appears reasonable. Gait reasonable with rolling walker at modified independent, still having issues with balance with quad cane. We will continue to work with balance to try and improve that. Some of this is long-standing.. PSYCH: Alert, oriented x3, affect appears euthymic. Insight appears intact. - Constitutional Vitals: Temp Pulse Resp BP Pulse Ox 36.6 C 68 20 154/62 92 05/28/19 07:08 05/28/19 07:08 05/28/19 07:08 05/28/19 07:08 05/28/19 07:08 Plan Activity: advance as tolerated, no driving until cleared by PCP, fall precautions Diet: diabetic (cardiac) Special Instructions: record daily BP diary, record blood sugar diary, follow up in rehab Durable Medical Equipment Needed Upon Discharge: other (patient has rolling walker and shower chair at home) Additional Instructions: Continue aspirin and Plavix for 10 days, then stop taking aspirin and only take Plavix. Plan of Treatment: CBC, BMP with PCP at follow up. Follow-up with neurology for new CVA and prior history of seizure activity. Did not restart any seizure medication as patient has been off of this for years. No seizure activity noted during this admission. No driving until cleared by either PCP or neurologist. Follow-up with outpatient therapy. Follow-up with endocrinology for management of diabetes. Continue weight loss and diabetic management to improve overall health. Return to former diabetes control program as prescribed by endocrinology. Follow up with: ROSMERY CAMERON [Other] - 7 Days Prescriptions: AtorvaSTATin [Lipitor] 40 mg PO QHS #30 tablet amLODIPine 10 mg PO QDAY #30 tablet Fenofibrate 50 mg PO DAILY #30 capsule metFORMIN [Glucophage] 1,000 mg PO BIDDIAB #120 tablet Aspirin EC [Halfprin EC] 81 mg PO QDAY #10 tablet Clopidogrel [Plavix] 75 mg PO QDAY #30 tablet Ergocalciferol [Vitamin D2] 50,000 unit PO We #5 capsule Lisinopril [Zestril TAB] 40 mg PO QDAY #30 tablet
== END 2019-05-28 12:50 | disposition home or self-care (01) | DRG 56 ==
LOC: UNDOADMIN 09:52 → 3A 09:52 → 3B 11:12
PROVIDERS: ADMIT Physical Medicine & Rehabilitation; ATTEND Physical Medicine & Rehabilitation
DX: I69.354 Hemiplegia and hemiparesis following cerebral infarction affecting left non-dominant side (principal); I63.9 Cerebral infarction, unspecified; I25.10 Atherosclerotic heart disease of native coronary artery without angina pectoris; E78.5 Hyperlipidemia, unspecified; G40.909 Epilepsy, unspecified, not intractable, without status epilepticus; R53.81 Other malaise; M62.81 Muscle weakness (generalized); E11.9 Type 2 diabetes mellitus without complications; M19.90 Unspecified osteoarthritis, unspecified site; E86.0 Dehydration; I10 Essential (primary) hypertension; Z82.49 Family history of ischemic heart disease and other diseases of the circulatory system; Z83.3 Family history of diabetes mellitus
CPT/HCPCS: 36415; 74018; 80048; 80053; 82962; 85025; 85027; G0378; A9270-GY; J1644; J1815; J7030